=== PATIENT | female | born 1975 | race Caucasian/White ===

== ENCOUNTER 2020-09-24 18:36 | Emergency (ER) | payer BC, SELFPAY ==
--- NOTE | ~2020-09-24 | XR_ITS ---
EXAMINATION: XR chest 2V EXAM DATE: 09/24/2020 19:24 INDICATION: Cough for 5 days. History of bronchitis and asthma. TECHNIQUE: Frontal and lateral projections of the chest obtained and reviewed. Comparison is made to prior examination from 08/14/2014. FINDINGS: The lungs are clear. There are no pleural effusions. The cardiomediastinal silhouette is within normal limits. There is no pneumothorax suspected. The bones and soft tissues are unremarkab le. IMPRESSION: No acute cardiopulmonary findings. Reviewed, dictated and finalized at location A.
[2020-09-24 18:52] VITALS: BP 166/98; PULSE 98; RESP 20; TEMP 37.4; O2SAT 96
--- NOTE | 2020-09-24 19:10 | ED.URI ---
HPI - URI/Sore Throat General Chief Complaint: Upper Respiratory Infection Stated Complaint: Congestion,cough Time Seen by Provider: 09/24/20 19:10 Source: patient and RN notes reviewed Mode of arrival: ambulatory Limitations: no limitations History of Present Illness HPI Narrative: 45-year-old female presents to the [facility] with complaints of runny nose, nasal congestion, productive cough and wheezing. Has a history of asthma. Used her rescue inhaler which made her feel better approximately noon today. Patient states that the sinus symptoms started approximately 5 days ago and since has moved into her chest. Denies chest pain or abdominal pain. Denies fevers. Denies ear pain. Related Data Home Medications Medication Instructions Recorded Confirmed albuterol sulfate [ProAir HFA] 1 inh INHALATION Q4-6H 09/24/20 09/24/20 budesonide-formoterol [Symbicort] 2 puff INHALATION Q12H 09/24/20 09/24/20 dextroamphetamine-amphetamine 45 mg PO DAILY 09/24/20 09/24/20 [Adderall] escitalopram oxalate [Lexapro] 20 mg PO DAILY 09/24/20 09/24/20 Allergies Allergy/AdvReac Type Severity Reaction Status Date / Time ENVIRONMENTAL ALLERGENS AdvReac Unknown Uncoded 01/12/17 17:04 Review of Systems Review of Systems: Narrative: CONSTITUTIONAL: Denies fever. Reports intermittent chills, or sweats. EYES: Denies visual changes, redness, or discharge. ENT: Reports rhinorrhea and congestion. Denies sore throat, or otalgia. CARDIOVASCULAR: Denies chest pain, palpitations, or edema. RESPIRATORY: Reports productive cough without dyspnea. GASTROINTESTINAL: Denies abdominal pain, nausea, vomiting, or diarrhea. SKIN: Denies rash or itching. MUSCULOSKELETAL: Denies back pain, joint pain, or myalgia. NEUROLOGIC: Denies headache, numbness, or weakness. PSYCHIATRIC: Denies anxiety or depression. All other systems reviewed are negative, except as documented in HPI. [facility] Past Medical History Medical History (Updated 09/24/20 @ 19:53 by Felicia Carter) Asthma Social History Social History Gender identity (if verbalized by the patient): Female Comments At the time of my signature, I reviewed and agree with the nursing past medical, surgical, social, and family history. There is no relevant family history pertinent to the patient complaint. Exam Narrative: Exam Narrative: GENERAL: This is a well-nourished, well-developed patient, in no apparent distress. Obese HEAD: normocephalic, atraumatic. EYES: PERRL. Sclera clear/white. Vision is grossly intact. EARS: External ears normal, auditory canals clear and without drainage, TMs normal without perforation. Hearing grossly intact. NOSE: External nose normal with no obvious nasal discharge, nares without redness, no rhinorrhea. THROAT: Mucous membranes moist, posterior pharynx clear. NECK: Neck supple, non-tender without lymphadenopathy, masses or thyromegaly. CARDIOVASCULAR: Regular rate and rhythm without murmurs, gallops, or rubs. RESPIRATORY: Strong cough noted that is productive. Coarseness noted throughout. Wheeze to the right lower and right middle noted, cleared with a cough. GASTROINTESTINAL: Abdomen soft, non-tender, nondistended. NEURO: awake, alert, and oriented to person, place and time. There were no obvious focal neurologic abnormalities. EXTREMITIES: No joint tenderness, effusion, or edema noted. BACK: Nontender without deformity. Course Vital Signs Vital signs: Vital Signs Temperature 99.4 F 09/24/20 18:52 Pulse Rate 98 09/24/20 18:52 Respiratory Rate 20 09/24/20 18:52 Blood Pressure 166/98 H 09/24/20 18:52 Pulse Oximetry 96 09/24/20 18:52 Temperature 99.4 F 09/24/20 18:52 Pulse Rate 98 09/24/20 18:52 Respiratory Rate 20 09/24/20 18:52 Blood Pressure 166/98 H 09/24/20 18:52 Pulse Oximetry 96 09/24/20 18:52 Discussed with patient that her blood pressure is elevated Reviewed MDM - URI/Sore Throat MDM Narrative Medical decision ma
[2020-09-25 18:07] LABS: SARS-CoV-2 RNA PCR Negative
== END 2020-09-24 19:45 | disposition home or self-care (01) ==
PROVIDERS: Emergency Provider Nurse Practitioner; PCP Emergency Medicine
DX: J40 Bronchitis, not specified as acute or chronic (principal); J06.9 Acute upper respiratory infection, unspecified; Z20.822 Contact with and (suspected) exposure to COVID-19
CPT/HCPCS: 71046; 87426; 99213; C9803; G0463; U0003; U0005

== ENCOUNTER 2021-05-20 12:30 | Emergency (ER) | payer BC, SELFPAY ==
[2021-05-20 12:39] VITALS: BP 131/82; PULSE 92; RESP 16; TEMP 37.4; O2SAT 99
--- NOTE | 2021-05-20 14:21 | ED.URI ---
HPI - URI/Sore Throat General Chief Complaint: Upper Respiratory Infection Stated Complaint: Congestion Time Seen by Provider: 05/20/21 14:21 Source: patient, RN notes reviewed and old records reviewed Mode of arrival: ambulatory Limitations: no limitations History of Present Illness HPI Narrative: 45 YEAR OLD FEMALE WHO PRESENTS TO [facility] WITH COMPLAINTS OF HEAD CONGESTION WITH NASAL DRAINAGE SINCE THURSDAY AND SORE THROAT. PATIENT REPORTS THAT SHE HAS NOTED NO TASTE OR SMELL TODAY. PATIENT STATES NO BODY ACHES, DENIES ANY SHORTNESS OF BREATH OR ANY KNOWN FEVERS. PATIENT REPORTS THAT SHE HAS NOT HAD COVID VACCINATIONS, DOES HAVE HISTORY OF ASTHMA. SHE STATES THAT SHE HAS HAD A HARSH NON PRODUCTIVE COUGH ALSO. MD elicited complaint: cough, rhinorrhea and nasal congestion Pertinent past history: asthma Onset (ago): day(s) (3) Consistency: progressively worsening Related Data Home Medications Medication Instructions Recorded Confirmed albuterol sulfate [ProAir HFA] 1 inh INHALATION Q4-6H 09/24/20 05/20/21 budesonide-formoterol [Symbicort] 2 puff INHALATION Q12H 09/24/20 05/20/21 dextroamphetamine-amphetamine 45 mg PO DAILY 09/24/20 05/20/21 [Adderall] escitalopram oxalate [Lexapro] 20 mg PO DAILY 09/24/20 05/20/21 Allergies Allergy/AdvReac Type Severity Reaction Status Date / Time ENVIRONMENTAL ALLERGENS AdvReac Unknown Other Uncoded 05/20/21 14:23 Review of Systems Review of Systems: CONSTITUTIONAL: Denies fever, chills, or sweats. EYES: Denies visual changes, redness, or discharge. ENT: POSITIVE rhinorrhea, congestion, POSITIVE sore throat, no otalgia. CARDIOVASCULAR: Denies chest pain, palpitations, or edema. RESPIRATORY: POSITIVE cough no dyspnea. GASTROINTESTINAL: Denies abdominal pain, nausea, vomiting, or diarrhea. GENITOURINARY: Denies dysuria or hematuria. SKIN: Denies rash or itching. MUSCULOSKELETAL: Denies back pain, joint pain, or myalgia. NEUROLOGIC: Denies headache, numbness, or weakness. PSYCHIATRIC: POSITIVE HISTORY OF anxiety or depression. All systems reviewed & are unremarkable except as noted in HPI and below PMFSH Past Medical History Medical History (Updated 05/22/21 @ 10:07 by Maggie Erickson NP) Anxiety with depression Asthma Bronchitis Elevated liver enzymes Hypertension Surgical History Surgical History (Updated 05/22/21 @ 10:02 by Maggie Erickson NP) H/O tubal ligation H/O: hysterectomy History of cholecystectomy Hx of appendectomy Previous section Family History Family History (Updated 05/22/21 @ 09:50 by Maggie Erickson NP) Father Diabetes mellitus Social History Social History (Updated 05/22/21 @ 09:56 by Maggie Erickson NP) Social History: exposure to second hand tobacco Alcohol intake: never Substance use: never Living arrangements: with family Gender identity (if verbalized by the patient): Female Comments At time of signature, agree with nursing past medical, surgical, social and family history. There is no relevant family history pertinent to the presenting complaint Exam Narrative: GENERAL: ill-appearing, well-nourished,obese and in no acute distress. HEAD: Normocephalic, atraumatic. EYES: PERRLA and EOMI. ENT: Nares red and swollen with clear rhinorrhea no epistaxis. Mucous membranes moist.TM's normal with good light reflex, throat red with no lesions or exudates, tonsil enlargement, post nasal drainage present, loss of taste and smell reported. NECK: Supple.no lymphadenopathy CHEST: Clear to auscultation. No respiratory distress. harsh cough noted with no stated dyspnea, SAO2 99% on room air. HEART: Regular rate and rhythm. No murmur heard. Normal peripheral pulses. ABDOMEN: Soft, nontender, nondistended, normal active bowel sounds. EXTREMITIES: Normal range of motion. No edema. SKIN: Warm, dry, no rash. NEURO: No focal deficits. Alert and oriented x3. Course Vital Signs Vital signs: Vital Signs Temperature
== END 2021-05-20 14:55 | disposition home or self-care (01) ==
PROVIDERS: Emergency Provider Registered Nurse; PCP Emergency Medicine
DX: U07.1 COVID-19 (principal); J45.909 Unspecified asthma, uncomplicated; I10 Essential (primary) hypertension; F41.9 Anxiety disorder, unspecified; F32.A Depression, unspecified
CPT/HCPCS: 87426; 99213; C9803; G0463

== ENCOUNTER 2021-09-04 12:51 | Emergency (ER) | payer BC, SELFPAY ==
[2021-09-04 12:58] VITALS: BP 136/77; PULSE 102; RESP 18; TEMP 37.3; O2SAT 97
[2021-09-04 12:59] VITALS: BP 136/77; PULSE 102; RESP 18; TEMP 37.3; O2SAT 97
--- NOTE | 2021-09-04 13:02 | ED.URI ---
HPI - URI/Sore Throat General Chief Complaint: Upper Respiratory Infection Stated Complaint: congestion Time Seen by Provider: 09/04/21 13:03 Source: patient Mode of arrival: ambulatory Limitations: no limitations History of Present Illness HPI Narrative: Verito Adams is a 46 yo female with PMH of HTN, seasonal allergies, depression, [facility] complaints of a sore throat cough and nasal congestion she is concerned that her days congestion may turn into bronchitis which she has had in the past. She states her throat is been really sore the last 2 days she will be tested for both strep and Covid since the patient is not vaccinated Related Data Home Medications Medication Instructions Recorded Confirmed budesonide-formoterol [Symbicort] 2 puff INHALATION Q12H 09/24/20 09/04/21 dextroamphetamine-amphetamine 45 mg PO DAILY 09/24/20 09/04/21 [Adderall] escitalopram oxalate [Lexapro] 20 mg PO DAILY 09/24/20 09/04/21 Allergies Allergy/AdvReac Type Severity Reaction Status Date / Time ENVIRONMENTAL ALLERGENS AdvReac Unknown Other Uncoded 09/04/21 12:58 Review of Systems Review of Systems: CONSTITUTIONAL: Denies fever, chills, sweats. EYES: Denies visual changes, redness, discharge. ENT: Denies rhinorrhea, has congestion, has sore throat, otalgia. CARDIOVASCULAR: Denies chest pain, palpitations, edema. RESPIRATORY: Denies dyspnea, wheezing, has cough GASTROINTESTINAL: Denies abdominal pain, nausea, vomiting, diarrhea. GENITOURINARY: Denies dysuria, hematuria, abnormal discharge SKIN: Denies rash or itching. NEUROLOGIC: Denies numbness, or focal weakness. PSYCHIATRIC: Denies anxiety or depression. [facility] Past Medical History Medical History Anxiety with depression Asthma Bronchitis Elevated liver enzymes Hypertension Surgical History Surgical History H/O tubal ligation H/O: hysterectomy History of cholecystectomy Hx of appendectomy Previous section Family History Family History Father Diabetes mellitus Social History Social History Social History: exposure to second hand tobacco Alcohol intake: never Substance use: never Gender identity (if verbalized by the patient): Female Comments At time of signature, I agree with nursing past medical, surgical, social and family history. There is no relevant family history pertinent to the presenting complaint. Exam Narrative: GENERAL: This is a well-nourished, well-developed patient, in mild distress. HEAD: normocephalic, atraumatic. EYES: Sclera clear/white. Vision is grossly intact. EARS: External ears normal, auditory canals clear and without drainage, TMs normal without perforation. Hearing grossly intact. NOSE: External nose normal without nasal discharge, nares with redness, has rhinorrhea. THROAT: Mucous membranes moist, posterior pharynx erythema with no exudate NECK: Neck supple, CARDIOVASCULAR: Tachycardic rate and rhythm without murmurs, gallops, or rubs. RESPIRATORY: Clear to auscultation. Breath sounds equal bilaterally. No wheezes, rales, or rhonchi. GASTROINTESTINAL: Abdomen soft, SKIN: warm, intact with no suspicious lesions or rash, good texture and turgor. NEURO: awake, alert, and oriented to person, place and time. There were no obvious focal neurologic abnormalities. Steady gait EXTREMITIES: Normal range of motion. BACK: Nontender without deformity Course Course Emergency Course: Patient comes with sore throat and congestion x2 days; patient is on vaccinated Rapid Covid test done is negative Strep test is negative Started on Zithromax and Flonase, Zyrtec-continue other medication Level of Care: Express Care Visit Vital Signs Vital signs: Vital Signs Temperature 99.1 F 09/04/
== END 2021-09-04 13:40 | disposition home or self-care (01) ==
PROVIDERS: Emergency Provider Nurse Practitioner; PCP Emergency Medicine
DX: J06.9 Acute upper respiratory infection, unspecified (principal); Z20.822 Contact with and (suspected) exposure to COVID-19; J45.909 Unspecified asthma, uncomplicated; I10 Essential (primary) hypertension; F32.A Depression, unspecified; F41.9 Anxiety disorder, unspecified
CPT/HCPCS: 87081; 87426; 87880; 99213; C9803; G0463

== ENCOUNTER 2021-10-05 14:58 | Emergency (ER) | payer BC, SELFPAY ==
[2021-10-05 15:06] VITALS: BP 146/70; PULSE 94; RESP 18; TEMP 36.7; O2SAT 98
--- NOTE | 2021-10-05 15:12 | ED.URI ---
HPI - URI/Sore Throat General Chief Complaint: Upper Respiratory Infection Stated Complaint: [place],Congestion Time Seen by Provider: 10/05/21 15:12 Source: patient, family, RN notes reviewed and old records reviewed Mode of arrival: ambulatory Limitations: no limitations History of Present Illness HPI Narrative: 46-year-old female presents to the [facility] with complaints of cough and congestion for the last 11 days. Has been taking her Zyrtec and Flonase with no relief. Reports a nonproductive cough. Denies fevers, chest pain, abdominal pain. No nausea vomiting or diarrhea. Y Related Data Home Medications Medication Instructions Recorded Confirmed budesonide-formoterol [Symbicort] 2 puff INHALATION Q12H 09/24/20 10/05/21 dextroamphetamine-amphetamine 45 mg PO DAILY 09/24/20 10/05/21 [Adderall] escitalopram oxalate [Lexapro] 20 mg PO DAILY 09/24/20 10/05/21 Allergies Allergy/AdvReac Type Severity Reaction Status Date / Time ENVIRONMENTAL ALLERGENS AdvReac Unknown Other Uncoded 10/05/21 15:14 Review of Systems Review of Systems: All systems reviewed & are unremarkable except as noted in HPI and below Constitutional: Constitutional: Reports no additional constitutional complaints, Denies chills, Denies fever(s) and Denies headache(s) Eyes: Eyes: Reports no additional eye complaints ENT: Reports as per HPI, Denies vertigo, Denies dizziness, Denies headache(s), Reports nasal congestion and Denies sore throat Cardiovascular: Cardiovascular: Reports no additional cardiovascular complaints, Denies chest pain, Denies syncope, Denies rapid heart rate and Denies dyspnea Respiratory: Respiratory: Reports as per HPI, Reports chest congestion, Reports cough, Denies dyspnea and Denies wheezing Gastrointestinal: Gastrointestinal: Reports no additional gastrointestinal complaints, Denies abdominal pain, Denies diarrhea, Denies nausea and Denies vomiting Musculoskeletal: Musculoskeletal: Reports no additional musculoskeletal complaints and Denies numbness Integumentary/Breasts: Skin/Breast: Reports system reviewed and no additional complaints, except as docu Neurologic: Reports system reviewed and no additional complaints, except as documented, Denies vertigo, Denies dizziness, Denies syncope, Denies headache(s), Denies focal weakness and Denies numbness Psychiatric: Psychiatric: Reports no additional psychiatric complaints Allergic/Immunologic: Allergic/Immunologic: Reports no additional allergic/immunologic complaints and Denies wheezing PMFSH Past Medical History Medical History Anxiety with depression Asthma Bronchitis Elevated liver enzymes Hypertension Surgical History Surgical History H/O tubal ligation H/O: hysterectomy History of cholecystectomy Hx of appendectomy Previous section Family History Family History Father Diabetes mellitus Social History Social History Social History: exposure to second hand tobacco Alcohol intake: never Substance use: never Gender identity (if verbalized by the patient): Female Comments At the time of my signature, I reviewed and agree with the nursing past medical, surgical, social, and family history. There is no relevant family history pertinent to the patient complaint. Exam Const: General: cooperative, healthy appearing, no acute distress, well developed and alert Nutritional Appearance: well nourished and obese Orientation/consciousness: patient oriented x3 Limitations: no limitations HENMT: Head: normal to inspection Ears: external ears normal, TM's normal bilaterally and EAC's normal General nose exam: Abnormal mucous membranes and turbinates present boggy bilateral and Nasal discharge present mucoid Face and sinus: normal
== END 2021-10-05 15:30 | disposition home or self-care (01) ==
PROVIDERS: Emergency Provider Nurse Practitioner; PCP Emergency Medicine
DX: J32.9 Chronic sinusitis, unspecified (principal); J45.909 Unspecified asthma, uncomplicated; I10 Essential (primary) hypertension; F41.9 Anxiety disorder, unspecified; F32.A Depression, unspecified
CPT/HCPCS: 99213; G0463

== ENCOUNTER 2022-09-21 14:31 | Emergency (ER) | payer OTHER, BC, SELFPAY ==
[2022-09-21 14:43] VITALS: BP 145/90; PULSE 91; RESP 20; TEMP 36.6; O2SAT 97
--- NOTE | 2022-09-21 15:20 | ED.GENADULT ---
HPI - General Adult General Chief complaint: Ear Stated complaint: Right Ear Irritation Time Seen by Provider: 09/21/22 15:20 Source: patient, RN notes reviewed and old records reviewed Mode of arrival: ambulatory Limitations: no limitations History of Present Illness HPI narrative: 47-year-old female presents to the [facility] with right ear pain for 2 days. States she has also had sinus congestion but after taking Sudafed that has cleared up but the ear pain has increased Related Data Home Medications Medication Instructions Recorded Confirmed budesonide-formoterol HFA 160 2 puff inhalation Q12H 09/24/20 09/21/22 mcg-4.5 mcg/actuation aerosol inhaler (Symbicort) dextroamphetamine-amphetamine 30 45 mg PO DAILY 09/24/20 09/21/22 mg tablet (Adderall) escitalopram oxalate 20 mg tablet 20 mg PO DAILY 09/24/20 09/21/22 (Lexapro) Allergies Allergy/AdvReac Type Severity Reaction Status Date / Time ENVIRONMENTAL ALLERGENS AdvReac Unknown Other Uncoded 09/21/22 14:45 Review of Systems Review of Systems: All systems reviewed & are unremarkable except as noted in HPI and below Constitutional: Constitutional: Reports no additional constitutional complaints Eyes: Eyes: Reports no additional eye complaints ENT: Reports as per HPI and Reports otalgia Cardiovascular: Cardiovascular: Reports no additional cardiovascular complaints, Denies chest pain and Denies dyspnea Respiratory: Respiratory: Reports no additional respiratory complaints, Denies chest congestion, Denies cough and Denies dyspnea Gastrointestinal: Gastrointestinal: Reports no additional gastrointestinal complaints, Denies abdominal pain, Denies nausea and Denies vomiting Musculoskeletal: Musculoskeletal: Reports no additional musculoskeletal complaints Integumentary/Breasts: Skin/Breast: Reports system reviewed and no additional complaints, except as docu Neurologic: Reports system reviewed and no additional complaints, except as documented Psychiatric: Psychiatric: Reports no additional psychiatric complaints Allergic/Immunologic: Allergic/Immunologic: Reports no additional allergic/immunologic complaints PMFSH Past Medical History Medical History Anxiety with depression Asthma Bronchitis Elevated liver enzymes Hypertension Surgical History Surgical History H/O tubal ligation H/O: hysterectomy History of cholecystectomy Hx of appendectomy Previous section Family History Family History Father Diabetes mellitus Social History Social History Social History: exposure to second hand tobacco Alcohol intake: never Substance use: never Living arrangements: with family Gender identity (if verbalized by the patient): Female Comments At the time of my signature, I reviewed and agree with the nursing past medical, surgical, social, and family history. There is no relevant family history pertinent to the patient complaint. Exam Const: General: cooperative, healthy appearing, comfortable, no acute distress, well developed, alert and well nourished Nutritional Appearance: well nourished and obese Orientation/consciousness: patient oriented x3 Limitations: no limitations HENMT: Head: normal to inspection Ears: hearing grossly normal bilaterally, external ears normal, TM normal on the left, EAC's normal and TM abnormal bulging on the right, wth effusion purulent on the right and erythematous on the right Face/Nose/Sinus: Normal external nose present, Normal nares present, Normal nasal mucous membranes and turbinates present and normal facial exam Face and sinus: normal facial exam Mouth: Yes Normal oral and palatal mucosa present, Yes lip normal and Yes moist mucous membranes Throat: posterior oropharynx no
== END 2022-09-21 15:32 | disposition home or self-care (01) ==
PROVIDERS: Emergency Provider Nurse Practitioner; PCP Emergency Medicine
DX: H66.91 Otitis media, unspecified, right ear (principal); I10 Essential (primary) hypertension
CPT/HCPCS: 99213; G0463

== ENCOUNTER 2022-11-14 12:17 | Outpatient (CLI) | payer OTHER, SELFPAY ==
--- NOTE | ~2022-11-14 | XR_ITS ---
XR lumbar spine 2-3V 11/14/2022 12:39 Indication: Lumbago. Back pain. Procedure: 3 views lumbar spine Comparison: No prior studies for comparison. Findings: There is grade 2 spondylolisthesis at L4-5. There is disc narrowing at all lumbar levels. V ertebral body heights are maintained. There is lower lumbar facet hypertrophy. No acute fracture or t raumatic malalignment. There is mild dextrocurvature.There is a radiodensity lateral to the L2 verteb ra on the left, most likely bowel content. There are cholecystectomy clips. Bowel pattern is nonobstr uctive. There are pelvic phleboliths. Impression: 1: Moderate lumbar spondylosis. Reviewed, dictated and finalized at location B. Impression: 1: Moderate lumbar spondylosis.
== END 2022-11-14 12:18 | disposition home or self-care (01) ==
LOC: ANHIMG 12:21
PROVIDERS: PCP Physician Assistant; Visit Provider Physician Assistant
DX: M47.896 Other spondylosis, lumbar region (principal)
CPT/HCPCS: 72100

== ENCOUNTER 2022-11-27 10:05 | Outpatient (CLI) | payer OTHER, SELFPAY ==
--- NOTE | 2022-11-27 10:28 | ECG_ITS ---
Measurements Intervals [place] Rate: 73 P: 26 DE: 166 QRS: -29 QRSD: 89 T: 20 QT: 390 QTc: 431 Interpretive Statements SINUS RHYTHM DELAYED PRECORDIAL R/S TRANSITION LOW QRS VOLTAGE IN PRECORDIAL LEADS BORDERLINE ECG NO PREVIOUS ECG AVAILABLE FOR COMPARISON Electronically Signed On 11-27-2022 11:11:32 CDT by Sarwat Meadows D.O.
== END 2022-11-27 10:06 | disposition home or self-care (01) ==
PROVIDERS: PCP Physician Assistant; Visit Provider Physician Assistant
DX: Z51.81 Encounter for therapeutic drug level monitoring (principal)
CPT/HCPCS: 93005

== ENCOUNTER 2023-02-28 09:56 | Emergency (ER) | payer OTHER, SELFPAY ==
[2023-02-28 10:06] VITALS: BP 143/71; PULSE 100; RESP 16; TEMP 37.2; O2SAT 99
--- NOTE | 2023-02-28 10:38 | ED.URI ---
HPI - URI/Sore Throat General Chief Complaint: Upper Respiratory Infection Stated Complaint: congestion, cough,sweating Time Seen by Provider: 02/28/23 10:38 Source: patient and RN notes reviewed Mode of arrival: ambulatory Limitations: no limitations History of Present Illness HPI Narrative: 47-year-old female presented for complaint of fatigue, headache, sinus pressure/congestion, cough, fever/chills. onset 2 days. States she feels the congestion is settling in her chest. Endorses has been with similar symptoms. Taking [id number] medication without significant relief. Patient quit smoking about 1 week ago.Denies sob, wheezing, n/v/d. MD elicited complaint: cough Related Data Home Medications Medication Instructions Recorded Confirmed budesonide-formoterol HFA 160 2 puff inhalation Q12H 09/24/20 09/21/22 mcg-4.5 mcg/actuation aerosol inhaler (Symbicort) escitalopram oxalate 20 mg tablet 20 mg PO DAILY 09/24/20 09/21/22 (Lexapro) diclofenac sodium 75 mg mg PO 02/28/23 tablet,delayed release Allergies Allergy/AdvReac Type Severity Reaction Status Date / Time ENVIRONMENTAL ALLERGENS AdvReac Unknown Other Uncoded 02/28/23 09:57 Review of Systems Review of Systems: CONSTITUTIONAL: Endorses malaise, chills, sweats, fever EYES: Denies visual changes, redness, or discharge ENT: Reports rhinorrhea, congestion, Denies sinus pain, otalgia, sore throat CARDIOVASCULAR: Denies chest pain, palpitations, edema RESPIRATORY: Reports cough, post nasal drainage. Denies dyspnea GASTROINTESTINAL: Denies abdominal pain, nausea, vomiting, diarrhea SKIN: Denies rash or itching MUSCULOSKELETAL: deniesmyalgia NEUROLOGIC: Reports headache PMFSH Past Medical History Medical History Anxiety with depression Asthma Bronchitis Elevated liver enzymes Hypertension Surgical History Surgical History H/O tubal ligation H/O: hysterectomy History of cholecystectomy Hx of appendectomy Previous section Family History Family History Father Diabetes mellitus Social History Social History Social History: exposure to second hand tobacco Alcohol intake: never Substance use: never Living arrangements: with family Gender identity (if verbalized by the patient): Female Exam Narrative: GENERAL: mildly Ill-appearing, nontoxic no acute distress. HEAD: Normocephalic EYES: PERRLA, conjunctivae clear ENT: Mucous membranes moist. TM pearly rosales with dull light reflex bilaterally; no tragal tenderness. Oropharynx erythematous without lesions or exudate NECK: Supple. No lymphadenopathy CHEST: Clear to auscultation, breath sounds equal. expiratory wheezing to bases. No respiratory distress, speaks in full sentences. HEART: Regular rate and rhythm. No murmur heard. SKIN: Warm, dry, no rash. NEURO: Alert and oriented x3. PSYCH: Normal mood and affect Course Course Emergency Course: Patient is aware of diagnosis, understands and agrees to treatment plan. Anticipatory guidance given. Patient agrees to follow-up as directed and is aware of reasons to seek care at the emergency department. Portions of this record may have been created with voice recognition software Level of Care: Express Care Visit Vital Signs Vital signs: Vital Signs Temperature 99.0 F 02/28/23 10:06 Pulse Rate 100 02/28/23 10:06 Respiratory Rate 16 02/28/23 10:06 Blood Pressure 143/71 H 02/28/23 10:06 Pulse Oximetry 99 02/28/23 10:06 Oxygen Delivery Room Air 02/28/23 10:06 Temperature 99.0 F 02/28/23 10:06 Pulse Rate 100 02/28/23 10:06 Respiratory Rate 16 02/28/23 10:06 Blood Pressure 143/71 H 02/28/23 10:06 Pulse Oximetry 99 02/28/23 10:06 Oxygen
== END 2023-02-28 11:08 | disposition home or self-care (01) ==
PROVIDERS: Emergency Provider Nurse Practitioner Family; PCP Physician Assistant
DX: B34.9 Viral infection, unspecified (principal); J45.909 Unspecified asthma, uncomplicated; I10 Essential (primary) hypertension; F98.8 Other specified behavioral and emotional disorders with onset usually occurring in childhood and adolescence; Z87.891 Personal history of nicotine dependence
CPT/HCPCS: 87426; 99213; C9803; G0463

== ENCOUNTER 2023-12-15 18:44 | Emergency (ER) | payer SELFPAY ==
--- NOTE | 2023-12-15 18:47 | ED.URI ---
HPI - URI/Sore Throat General Stated Complaint: sore throat,ear pressure Time Seen by Provider: 12/15/23 18:47 Source: patient Mode of arrival: ambulatory Limitations: no limitations History of Present Illness HPI Narrative: Shu is a 48-year-old female patient presenting to the clinic today with complaints of right ear pain and right-sided sore throat. She reports the symptoms started yesterday. Reports she felt feverish and having chills and sweats yesterday and today. MD elicited complaint: sore throat and nasal congestion Related Data Home Medications Medication Instructions Recorded Confirmed budesonide-formoterol HFA 160 2 puff inhalation Q12H 09/24/20 12/15/23 mcg-4.5 mcg/actuation aerosol inhaler (Symbicort) escitalopram oxalate 20 mg tablet 20 mg PO DAILY 09/24/20 12/15/23 (Lexapro) Allergies Allergy/AdvReac Type Severity Reaction Status Date / Time ENVIRONMENTAL ALLERGENS AdvReac Unknown Other Uncoded 12/15/23 18:56 Review of Systems Review of Systems: Pertinent positives per HPI. Patient denies any rash, headache, visual changes, dizziness, cough, shortness of breath, chest pain, palpitations, nausea, vomiting, diarrhea, constipation, abdominal pain, or any urinary issues. [facility] Past Medical History Medical History Anxiety with depression Asthma Bronchitis Elevated liver enzymes Hypertension Surgical History Surgical History H/O tubal ligation H/O: hysterectomy History of cholecystectomy Hx of appendectomy Previous section Family History Family History Father Diabetes mellitus Social History Social History Social History: exposure to second hand tobacco Alcohol intake: never Substance use: never Living arrangements: with family Gender identity (if verbalized by the patient): Female Comments At the time of my signature, I reviewed and agree with the nursing past medical, surgical, social, and family history. There is no relevant family history pertinent to the patient complaint. Exam Narrative: General: Well-developed, well nourished, in no apparent distress Head: Normocephalic, atraumatic Eyes: Pupils equally round and reactive to light bilaterally, EOM intact, sclera and conjunctive clear, no discharge, lids normal Ears: Left TMs intact and clear, right TM intact, bulging, red, ear canals clear, no drainage, grossly hearing normal. Nose: Nares patent, no discharge, no inflammation, no sinus tenderness. Mouth: Oral pharynx red with bilateral tonsillar enlargement with exudate to the right tonsil, without lesions or masses, good dentition, MMM. Neck: Supple, trachea midline, enlargement of anterior cervical nodes, no thyroid masses or goiter palpable. Cardio: Regular rate and rhythm, s1 and s2 normal, no murmur appreciated. Resp: Clear to auscultation bilaterally, no rhonchi, rales, wheezing or rubs Course Course Emergency Course: Portions of this record may have been created with voice recognition software. Level of Care: Express Care Visit Vital Signs Vital signs: Vital Signs Temperature 36.2 C L 12/15/23 18:53 Pulse Rate 91 12/15/23 18:53 Respiratory Rate 20 12/15/23 18:53 Blood Pressure 144/89 H 12/15/23 18:53 Pulse Oximetry 96 12/15/23 18:53 Oxygen Delivery Room Air 12/15/23 18:53 Temperature 36.2 C L 12/15/23 18:53 Pulse Rate 91 12/15/23 18:53 Respiratory Rate 20 12/15/23 18:53 Blood Pressure 144/89 H 12/15/23 18:53 Pulse Oximetry 96 12/15/23 18:53 Oxygen Delivery Room Air 12/15/23 18:53 Vital signs reviewed MDM - URI/Sore Throat MDM Narrative Medical decision making narrative: At the time of visit patient is resting comfortably on the exam table
[2023-12-15 18:53] VITALS: BP 144/89; PULSE 91; RESP 20; TEMP 36.2; O2SAT 96
== END 2023-12-15 19:15 | disposition home or self-care (01) ==
PROVIDERS: Emergency Provider Nurse Practitioner Family; PCP Physician Assistant
DX: H66.91 Otitis media, unspecified, right ear (principal); J02.9 Acute pharyngitis, unspecified; J45.909 Unspecified asthma, uncomplicated; I10 Essential (primary) hypertension; F41.9 Anxiety disorder, unspecified; F32.A Depression, unspecified
CPT/HCPCS: 87880; 99213; G0463

== ENCOUNTER 2025-03-01 12:50 | Outpatient (CLI) | payer OTHER, SELFPAY ==
--- OUTSIDE RECORDS SUMMARY | 2022-07-29 09:58 | XMS_ITS | Continuity of Care Document ---
Author Organization [facility] Address [address] [facility] [place] [address] [place] [address] Phone Care Team Providers Care Balance Wheel Facer Name Role Phone Marcello Leahy MD Unavailable [...] Diagnoses Date Provider Providers Copied on Encounter [facility], [address] [place], [place], [address], tel:[phone] [facility] No Information J Luis Armond Armendariz. [address] [place], [place], [address] , . tel:[phone] [facility], [address] [place], [place], [address], [place] tel:[phone] [facility] No Information 2 Armond Claudio [address], [place], [place], [address] , [place]. tel:[phone] PREV VISIT, EST, AGE 40-64 [facility], [address], [address], [place] tel:[phone] [facility] physical (chief complaint) Encounter for general adult medical exam w abnormal findingsLiver diseaseOther thrombocytosisOther specified abnormal findings of blood chemistryGeneralize d anxiety disorderAttention and concentration deficitMild intermittent asthma, uncomplicatedMixed hyperlipidemiaAbnor mal weight loss 2 Armond Claudio [address], [place], [place], [address] , [place]. tel:[phone] OFFICE/OUTPA TIENT VISIT, EST [facility], [address] [place], [address], [place] tel:[phone] [facility] LFT (chief complaint) HLP (chief complaint) platelet (chief complaint) b12 (chief complaint) FatigueOther thrombocytosisMixed hyperlipidemiaHyper glycemiaLiver diseaseOther specified abnormal findings of blood chemistry 2 Armond Claudio [address], [place], [place], [address] , [place]. tel:[phone] OFFICE/OUTPA TIENT VISIT, EST [facility], [address] [place], [address], [place] tel:[phone] [facility] ADD (chief complaint) asthma1 (chief complaint) anxiety1 (chief complaint) Attention and concentration deficitGeneralized anxiety disorderMild intermittent asthma, uncomplicated 2 Armond Claudio [address], [place], [place], [address] , [place]. tel:[phone] PREV VISIT, EST, AGE 40-64 [facility], [address] [place], [address], [place] tel:[phone] [facility] physical (chief complaint) Encounter for general adult medical exam w abnormal findingsAsthmaGener alized anxiety disorderAttention and concentration deficit 0- 1 Armond Armendariz. [address], [place], [place], [address] , [place]. tel:[phone] OFFICE/OUTPA TIENT VISIT, [facility], [address], [place], [place], [address], [place] tel:[phone] [facility] ADD (chief complaint) anxiety1 (chief complaint) Attention and concentration deficitGeneralized anxiety disorder 1 Armond Armendariz. [address], [place], [place], [address] , [place]. tel: [phone] PREV VISIT, [facility], AGE 40-64 [facility], [address], [place], [place], [address], [place] tel:[phone] [facility] physical (chief complaint) Encounter for general adult medical examination without abnormal findings 0 Armond Armendariz. [address], [place], [place], [address] , [place]. tel: [phone] OFFICE/OUTPA TIENT VISIT, [facility], [address], [place], [place], [address], [place] tel:[phone] [facility] ADD (chief complaint) back pain1 (chief complaint) anxiety1 (chief complaint) asthma1 (chief complaint) Attention and concentration deficitLumbago with sciatica, right sideGeneralized anxiety disorderAsthma Jan- 0 Armond Armendariz. [address], [place], [place], [address] , [place]. tel: [phone] OFFICE/OUTPA TIENT VISIT, [facility], [address], [place], [place], [address], [place] tel:[phone] [facility] ADD (chief complaint) back pain1 (chief complaint) Attention and concentration deficitLumbago with sciatica, right side 0 Armond Armendariz. [address], [place], [place], [address] , [place]. tel:[phone] OFFICE/OUTPA TIENT VISIT, EST [facility], [address], [place], [place], [address], [place] tel:[phone] [facility] sciatica1 (chief complaint) ADD (chief complaint) HTN (chief complaint) Essential (primary) hypertensionAttenti on and concentration deficitLumbago with sciatica, right sideParesthesia of skin Feb-2 0-202 0 Armond Armendariz. [address], [place], [place], [address] , [place]. tel:[phone] OFFICE/OUTPA TIENT VISIT, EST [facility], [address], [place], [place], [address], [place] tel:[phone] [facility] sciatica1 (chief complaint) HTN (chief complaint) Essential (primary) hypertensionParesth esia of skin Feb-0 7-202 0 Armond Armendariz. [address], [place], [place], [address] , [place]. tel:[phone] OFFICE/OUTPA TIENT VISIT, EST [facility], [address], [place], [place], [address], [place] tel:[phone] [facility] anxiety1 (chief complaint) asthma1 (chief complaint) ADD (chief complaint) Body mass index (BMI) 50-59.9 , adultAsthmaAcute bronchitisGeneraliz ed Anxiety DisorderAttention and concentration deficit Nov-2 2-201 9 Armond Armendariz. [address], [place], [place], [address] , [place]. tel:[phone] Referring Provider: Marcello Leahy, [address] [facility] [address], [place], [place], [address]. tel:[phone] PREV VISIT, EST, AGE 40-64 [facility], [address], [place], [place], [address], [place] tel:[phone] [facility] anxiety1 (chief complaint) Encounter for general adult medical exam w abnormal findingsAsthmaAtten tion and concentration deficitEssential (primary) hypertensionGeneral ized anxiety disorder November-2 0-201 9 Armond Armendariz. [address], [place], [place], [address] , [place]. tel:[phone] Referring Provider: Jimbo [address], [place], [place], [address]. tel:[phone] PREV VISIT, EST, AGE 40-64 [facility], [address], [place], [place], [address], [place] tel:[phone] [facility] PHysical (chief complaint) Encounter for general adult medical exam w abnormal findingsAsthmaAtten tion deficitBody mass index (BMI) 45.0-49.9, adultGeneralized anxiety disorder Nov-1 6-201 8 Armond Claudio [address], [place], [place], [address] , [place]. tel:[phone] OFFICE/OUTPA TIENT VISIT, EST [facility], [address], [place], [place], [address], [place] [phone] [facility] asthma1 (chief complaint) anxiety1 (chief complaint) ADD (chief complaint) Body mass index (BMI) 50-59.9 , adultAsthmaAttentio n and concentration deficitGeneralized anxiety disorder November-0 8-201 8 Armond Claudio [address], [place], [place], [address] , [place]. tel: [phone] Referring Provider: Jimbo [address], [place], [place], [address]. tel:[phone] PREV VISIT, EST, AGE 40-64 [facility], [address], [place], [place], [address], [place] [phone] [facility] Medicine PHysical (chief complaint) Encounter for general adult medical exam w abnormal findingsAttention deficitAsthmaGenera lized anxiety disorder Nov-0 2-201 7 Armond Claudio [address], [place], [place], [address] , [place]. tel:[phone] Referring Provider: Jimbo [address], [place], [place], [address]. tel:[phone] OFFICE/OUTPA TIENT VISIT, EST [facility], [address], [place], [place], [address], [place] tel:[phone] [facility] Medicine pelvic pain1 (chief complaint) anxiety1 (chief complaint) asthma1 (chief complaint) ADD (chief complaint) Pelvic painAttention deficitAsthmaGenera lized anxiety disorder 7 Armond Armendariz. [address], [place], [place], [address] , [place]. tel:[phone] Referring Provider: [address], [place], [place], [address]. tel:[phone] OFFICE/OUTPA TIENT VISIT, EST [facility], [address], [place], [place], [address], [place] tel:[phone] [facility] Medicine cough1 (chief complaint) ADD (chief complaint) BMI (chief complaint) Acute bronchitis, unspecifiedAttentio n deficitBody mass index (BMI) 50-59.9 , adult Jul- 7 Armond Armendariz. [address], [place], [place], [address] , [place]. tel:[phone] PREV VISIT, EST, AGE 40-64 [facility], [address], [place], [place], [address], [place] tel:[phone] [facility] Physical (chief complaint) Encounter for general adult medical exam w abnormal findingsAttention deficitGeneralized anxiety disorderAsthma 6 Armond Armendariz. [address], [place], [place], [address] , [place]. tel:[phone] Referring Provider: [address], [place], [place], [address]. tel:[phone] OFFICE/OUTPA TIENT VISIT, EST [facility], [address], [place], [place], [address], [place] tel:[phone] [facility] ADD (chief complaint) anxiety1 (chief complaint) asthma1 (chief complaint) hemautira (chief complaint) Attention deficitGeneralized anxiety disorderOther asthmaHematuria 6 Armond Armendariz. [address], [place], [place], [address] , [place]. tel:[phone] Referring Provider: Jimbo [address], [place], [place], [address]. tel:[phone] OFFICE/OUTPA TIENT VISIT, [facility], [address], [place], [place], [address], [place] tel:[phone] [facility] ADD1 (chief complaint) sore throat1 (chief complaint) asthma (chief complaint) obesity1 (chief complaint) Acute upper respiratory infection, unspecifiedBody mass index (BMI) 50-59.9 , adultOther asthmaAttention deficit 6 Armond Armendariz. [address], [place], [place], [address] , [place]. tel:[phone] Referring Provider: Jimbo [address], [place], [place], [address]. tel:[phone] OFFICE/OUTPA TIENT VISIT, [facility], [address], [place], [place], [address], [place] tel:[phone] [facility] ADD1 (chief complaint) hematuria1 (chief complaint) depression 1 (chief complaint) asthma1 (chief complaint) obeisty1 (chief complaint) HematuriaBody mass index (BMI) 50-59.9 , adultGeneralized anxiety disorderAttention and concentration deficit 5 Armond Armendariz. [address], [place], [place], [address] , [place]. tel:[phone] Referring Provider: Jimbo [address], [place], [place], [address]. tel:[phone] OFFICE/OUTPA TIENT VISIT, [facility], [address], [place], [place], [address], [place] tel:[phone] [facility] ADD (chief complaint) obeisty (chief complaint) hematuria (chief complaint) Dietary surveillance and counselingAttention deficit disorder of childhood without mention of hyperactivityBMI 50.0 to 59.9Hematuria 5 Armond Armendariz. [address], [place], [place], [address] , [place]. tel:[phone] Referring Provider: Jimbo [address], [place], [place], [address]. tel:[phone] PREV VISIT, EST, AGE 40-64 [facility], [address], [place], [place], [address], [place] tel:[phone] [facility] Physical (chief complaint) Dietary surveillance and counselingRoutine medical examAsthma, unspecifiedHematuri aInsulin resistance 5 Armond Armendariz. [address], [place], [place], [address] , [place]. tel:[phone] Referring Provider: Jimbo [address], [place], [place], [address]. tel:[phone] OFFICE/OUTPA TIENT VISIT, EST [facility], [address], [place], [place], [address], [place] tel:[phone] [facility] SOB (chief complaint) Asthma (chief complaint) Dietary surveillance and counselingAsthmaBro nchitis, AcuteAttention deficit disorder of childhood without mention of hyperactivity 5 Armond Armendariz. [address], [place], [place], [address] , [place]. tel:[phone] Referring Provider: Jimbo [address], [place], [place], [address]. tel:[phone] PREV VISIT, EST, AGE 40-64 [facility], [address], [place], [place], [address], [place] tel:[phone] [facility] Physical (chief complaint) Routine Medical ExamDietary surveillance and counselingAsthmaBro nchitis, AcuteAttention deficit disorder of childhood without mention of hyperactivityRoutin e Medical Exam 5 Armond Armendariz. [address], [place], [place], [address] , [place]. tel:[phone] Referring Provider: Jimbo [address], [place], [place], [address]. tel:[phone] OFFICE/OUTPA TIENT VISIT, [facility], [address], [place], [place], [address], [place] tel:[phone] [facility] cough (chief complaint) ADD (chief complaint) asthma (chief complaint) Dietary surveillance and counselingBronchiti s, AcuteAsthmaAllergic rhinitis, cause unspecifiedAttentio n deficit disorder of childhood without mention of hyperactivity 4 Armond Armendariz. [address], [place], [place], [address] , [place]. tel:[phone] Referring Provider: Jimbo [address], [place], [place], [address]. tel:[phone] OFFICE/OUTPA TIENT VISIT, [facility], [address], [place], [place], [address], [place] tel:[phone] [facility] cough (chief complaint) Anxiety (chief complaint) ADD (chief complaint) Dietary surveillance and counselingBronchiti s, AcuteAsthmaAttentio n deficit disorder of childhood without mention of hyperactivityDepres dhruv 4 Armond Armendariz. [address], [place], [place], [address] , [place]. tel:[phone] Referring Provider: Jimbo [address], [place], [place], [address]. tel:[phone] OFFICE/OUTPA TIENT VISIT, [facility], [address], [place], [place], [address], [place] tel:[phone] [facility] ADD (chief complaint) anxiety (chief complaint) Dietary surveillance and counselingAttention deficit disorder of childhood without mention of hyperactivityDepres dhruv 4 Armond Armendariz. [address], [place], [place], [address] , [place]. tel:[phone] Referring Provider: Jimbo [address], [place], [place], [address]. tel:[phone] PREV VISIT, EST, AGE 18-39 [facility], [address], [place], [place], [address], [place] tel:[phone] [facility] Physical (chief complaint) Dietary surveillance and counselingRoutine Medical ExamBronchitis, AcuteRoutine Medical Exam Dec-0 3 Armond Armendariz. [address], [place], [place], [address] , [place]. tel:[phone] PREV VISIT, EST, AGE 18-39 [facility], [address], [place], [place], [address], [place] tel:[phone] [facility] Physical (chief complaint) Dietary surveillance and counselingRoutine Medical ExamRoutine Medical Exam Salo-0 3 Armond Armendariz. [address], [place], [place], [address] , [place]. tel:[phone] Referring Provider: Jimbo [address], [place], [place], [address]. tel:[phone] OFFICE/OUTPA TIENT VISIT, EST [facility], [address], [place], [place], [address], [place] tel:[phone] [facility] ADD (chief complaint) Asthma (chief complaint) depression (chief complaint) Dietary surveillance and counselingAsthmaAtt ention deficit disorder of childhood without mention of hyperactivityMajor depressive affective disorder, single episode, mild degreeInfluenza Vaccine Jun-0 2 Armond Armendariz. [address], [place], [place], [address] , [place]. tel:[phone] Referring Provider: Jimbo [address], [place], [place], [address]. tel:[phone] Family History Family Member Type Diagnosis Age At Onset Father Problem (finding) Diabetes mellitus Sister Problem (finding) Alive and well Mother Problem (finding) CHF Immunizations Vaccine Date Status Comments Flu (split) (3 yrs or older) administered Source: New Immunization Record Payers Payer name Insurance type Covered democrat ID Authoriza tion(s) No Information Social History [...] feels sob. Pt denies any other complaints LFT Pt has high LFT and high glucose Pt denies any abd pain or jaundice. Pt denies any polyuria, polydipsia. HLP Pt has HLP Pt is not on any diet . platelet Pt has borderlin e high platelet. Pt denies any bruising or bleeding b12 Pt has high B12 Pt does feel fatigue Pt takes b12 supplement. Pt denies any snoring or any trouble with sleeping at night. Pt does drink energy drink ADD Patient has ADD. Patient has inattentive [...] chest pain. Patient denies any appetite loss. 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 Patient denies any [...] pain for a while since off work ADD Patient has ADD. Patient has inattentive type. Patient feels scatterbrained. Patient feel poor focus and difficulty completing tasks. Patient states that Adderall is helping with symptoms. Patient feels more focused. Pt feels more energy. Patient denies any headache, dry mouth, headache, chest pain. Patient denies any appetite loss. anxiety1 Chronic anxiety with depression. No suicidal thought, return to ER with any suicidal thought. Pt doing ok with lexapro. asthma1 Pt has asthma .P t takes symbicort and she rarely needs albuterol. Pt denies any hemoptysis, sob or cough ADD Patient has ADD. Patient has inattentive [...] rosa m with pain management next week sciatica1 Pt c/o persisten t lumbago with right sciatica and right posterior thigh and calf numbness and toe numbness for 4 weeks Pt denies any injury ,Pt tried steroid x 2 rounds without improvement. Pt denies any loss of bladder control. Pt denies any claudication Pt works at [employer] and she is on her feet al day and has been hard for her to work all day ,Pt states that the numbness gets worse after several hours of work Pt also took mobic without improvement ADD Patient has ADD. Patient has inattentive type. Patient feels scatterbrained. Patient feel poor focus and difficulty completing tasks. Patient states that Adderall is helping with symptoms. Patient feels more focused. Pt feels more energy. Patient denies any headache, dry mouth, headache, chest pain. Patient denies any appetite loss. HTN Her BP is ok tod ay sciatica1 Pt c/o acute ons et of [...] numbness and tingling right leg from above HTN Her BP is border line high today Pt denies any chest pain or headache Pt states that she is in pain anxiety1 Pt has chronic a nxiety and depression Pt takes lexapro and doing ok pt denies any suicidal or homicidal thought Pt denies any crying spells asthma1 Pt has asthma. p t takes [...] Patient denies any appetite loss. anxiety1 Pt needs annual physical Pt has [...] working well to help her with symtpoms cough1 Pt c/o productiv e coughing with yellow phlegm, slighlty SOB and sinus symptoms for 2 weeks. Pt has history of asthma and she notices mild wheezing also. Pt is on symbicort and also she wants proair PRN for now Pt denies any fever ADD Pt has ADD Pt ta kes adderall and doing ok. Pt feels more focused. BMI Pt has very high BMI. which is over 50. Pt has been trying to lose weight on her own unsuccessfully. Physical Pt needs annual physical. Pt has asthma. Pt uses symbicort. Pt uses ventolin about 1-2 per month. Pt doing well. No acute soB. Pt has chronic anxiety and depression. Pt takes lexapro and xanax and doing ok. Pt denies any suicidal or homicidal thought. Pt also has ADD. Pt takes adderall and doing ok Pt denies any appetite loss. ADD Pt has ADD. Pt t akes adderall and doing ok. Pt denies any abd pain or any appetite loss anxiety1 Pt has chronic a nxiety and depression. Pt takes lexapro and doing ok. Pt denies any suicidal or homicidal thought. Pt denies any crying spells asthma1 Pt has been usin g symbicort daily. Pt does not need to use proair at all for the past 6 months. Pt denies any coughing or wheezing hemautira Pt denies any UT i symptoms. Pt still has not done repeat UA yet ADD1 Pt has aDD. Pt t akes [...] denies any snoring Pt denies any fatigue. ADD1 Pt has ADD. Pt t akes [...] any crying spells or feeling or hopelessness. asthma1 Pt has asthma. P t james been doing well with symbicort Pt denies any SOB. Pt has not had the need to use proair obeisty1 pt has tried phe ntermine but she could not tolerate without adderall. Pt did feel appetite suppression with phentermine. Pt is obese ADD Pt states that s he cant [...] adult Weight management Related to Ast hma Prescribed Activity and Exercise Education Related to Dietary Surveillance and Counseling Prescribed Diet Educ ation/Lifestyle Education Regarding Diet Related to Dietary Surveillance and Counseling Increase physical activity Relat ed to Encounter [...]
[2025-03-01 13:06] LABS: Hematocrit 47.1 % (35.0-49.0); Hemoglobin 15.2 g/dL (12.0-15.0); Immature Granulocyte Percent A 0.3 % (0.0-0.0); Immature Platelet Fraction Pct 1.9 % (1.0-7.0); Lymphocytes Absolute Auto 2.20 K/mm3 (1.10-4.50); Mean Corpuscular HGB Conc 32.3 g/dL (32-36); Mean Corpuscular Hemoglobin 31.0 pg (27.0-31.0); Mean Corpuscular Volume 95.9 fL (78.0-102.0); Nucleated Red Blood Cells Absolute Auto 0.00 K/mm3 (0.00-0.00); Nucleated Red Blood Cells Perc 0.0 % (0-0.0); Platelet Count Result 516 K/mm3 (150-420); Red Blood Count 4.91 M/mm3 (4.20-5.40); White Blood Count 9.1 K/mm3 (4.8-10.8)
[2025-03-01 13:16] LABS: Hemoglobin A1C 5.6 % (<5.7)
[2025-03-01 13:31] LABS: Alanine Aminotransferase 23 U/L (6-35); Albumin Level 5.2 g/dL (3.5-5.1); Alkaline Phosphatase 106 U/L (38-126); Anion Gap 17 mmol/L (4-12); Aspartate Amino Transferase 28 U/L (14-36); Bilirubin,Total 0.6 mg/dL (0.2-1.3); Blood Urea Nitrogen 20 mg/dL (7-17); Calcium 11.2 mg/dL (8.4-10.2); Carbon Dioxide 22 mmol/L (22-30); Chloride 105 mmol/L (98-107); Cholesterol 267 mg/dL (0-200); Estimated Glomerular Filt Rate > 60; Glucose 117 mg/dL (65-110); HDL Direct 73 mg/dL; Osmolality Calculated 301 mOsm/kg (285-295); Potassium 5.0 mmol/L (3.4-5.0); Sodium 144 mmol/L (137-145); Total Protein 8.3 g/dL (6.3-8.2); Triglycerides 166 mg/dL (<150)
[2025-03-01 14:02] LABS: Thyroid Stimulating Hormone Reflex 2.190 uIU/mL (0.465-4.68)
== END 2025-03-01 12:51 | disposition home or self-care (01) ==
PROVIDERS: PCP Nurse Practitioner Family; Visit Provider Nurse Practitioner Family
DX: Z00.00 Encounter for general adult medical examination without abnormal findings (principal); F32.A Depression, unspecified; F41.9 Anxiety disorder, unspecified
CPT/HCPCS: 36415; 80053; 80061; 82306; 83036; 84443; 85025; 85055

== ENCOUNTER 2025-03-08 15:20 | Outpatient (CLI) | payer OTHER, SELFPAY ==
--- OUTSIDE RECORDS SUMMARY | 2022-07-29 09:58 | XMS_ITS | Continuity of Care Document ---
Author Organization [facility] Address [address] [facility] [place] [address] [place] [address] Phone Care Team Providers Care Digester Capper Name Role Phone Marcello Leahy MD Unavailable Unavailable Allergies, Adverse Reactions, Alerts Substance Reaction Status Criticality No Known Allergies Active No Inform ation Medications Medication Instructions Dosage Effective Dates (start - stop) Status Comments Adderall 30 mg tablet take 1.5 tablet by oral route daily - Active take 30 mg in A m and 15 mg in early afternoon Lexapro 20 mg tablet take 1 tablet (20MG) by oral route every day - Active Symbicort 160 mcg-4.5 mcg/actuation HFA aerosol inhaler inhale 2 puff by inhalation route 2 times every day in the morning and evening 2.00 puff - Active Ventolin HFA 90 mcg/actuation aerosol inhaler inhale 2 puff by inhalation route every 4 - 6 hours as needed as needed - Active PRN for sob Procedures Procedure Date PREV VISIT, EST, AGE 40-64 OFFICE/OUTPATIENT VISIT, EST OFFICE/OUTPATIENT VISIT, EST OFFICE/OUTPATIENT VISIT, EST PREV VISIT, EST, AGE 40-64 OFFICE/OUTPATIENT VISIT, EST OFFICE/OUTPATIENT VISIT, EST PREV VISIT, EST, AGE 40-64 OFFICE/OUTPATIENT VISIT, EST OFFICE/OUTPATIENT VISIT, EST OFFICE/OUTPATIENT VISIT, EST OFFICE/OUTPATIENT VISIT, EST OFFICE/OUTPATIENT VISIT, EST PREV VISIT, EST, AGE 40-64 OFFICE/OUTPATIENT VISIT, EST PREV VISIT, EST, AGE 40-64 OFFICE/OUTPATIENT VISIT, EST OFFICE/OUTPATIENT VISIT, EST PREV VISIT, EST, AGE 40-64 OFFICE/OUTPATIENT VISIT, EST OFFICE/OUTPATIENT VISIT, EST OFFICE/OUTPATIENT VISIT, EST PREV VISIT, EST, AGE 40-64 OFFICE/OUTPATIENT VISIT, EST OFFICE/OUTPATIENT VISIT, EST OFFICE/OUTPATIENT VISIT, EST OFFICE/OUTPATIENT VISIT, EST OFFICE/OUTPATIENT VISIT, EST PREV VISIT, EST, AGE 40-64 OFFICE/OUTPATIENT VISIT, EST OFFICE/OUTPATIENT VISIT, EST PREV VISIT, EST, AGE 40-64 OFFICE/OUTPATIENT VISIT, EST OFFICE/OUTPATIENT VISIT, EST OFFICE/OUTPATIENT VISIT, EST OFFICE/OUTPATIENT VISIT, EST PREV VISIT, EST, AGE 18-39 OFFICE/OUTPATIENT VISIT, EST PREV VISIT, EST, AGE 18-39 OFFICE/OUTPATIENT VISIT, EST FLU VACCINE, 3 YRS & >, IM IMMUNIZATION ADMIN Advance Directives Directive Yes / No Effective Date File Name No Information Encounters Encounter Description Practice Location Reason(s) For Visit Diagnoses Date Provider Providers Copied on Encounter [facility], [address] [place], [place], [address], tel:[phone] [facility] No Information J Luis Armond Armendariz. [address] [place], [place], [address] , . tel:[phone] [facility], [address] [place], [place], [address], [place] tel:[phone] [facility] No Information 2 Armond Claudio [address], [place], [place], [address] , [place]. tel:[phone] PREV VISIT, EST, AGE 40-64 [facility], [address], [address], [place] tel:[phone] [facility] physical (chief complaint) Encounter for general adult medical exam w abnormal findingsLiver diseaseOther thrombocytosisOther specified abnormal findings of blood chemistryGeneralize d anxiety disorderAttention and concentration deficitMild intermittent asthma, uncomplicatedMixed hyperlipidemiaAbnor mal weight loss 2 Armond Claudio [address], [place], [place], [address] , [place]. tel:[phone] OFFICE/OUTPA TIENT VISIT, EST [facility], [address] [place], [address], [place] tel:[phone] [facility] LFT (chief complaint) HLP (chief complaint) platelet (chief complaint) b12 (chief complaint) FatigueOther thrombocytosisMixed hyperlipidemiaHyper glycemiaLiver diseaseOther specified abnormal findings of blood chemistry 2 Armond Claudio [address], [place], [place], [address] , [place]. tel:[phone] OFFICE/OUTPA TIENT VISIT, EST [facility], [address] [place], [address], [place] tel:[phone] [facility] ADD (chief complaint) asthma1 (chief complaint) anxiety1 (chief complaint) Attention and concentration deficitGeneralized anxiety disorderMild intermittent asthma, uncomplicated 2 Armond Caludio [address], [place], [place], [address] , [place]. tel:[phone] PREV VISIT, EST, AGE 40-64 [facility], [address] [place], [address], [place] tel:[phone] [facility] physical (chief complaint) Encounter for general adult medical exam w abnormal findingsAsthmaGener alized anxiety disorderAttention and concentration deficit 0- 1 Armond Armendariz. [address], [place], [place], [address] , [place]. tel:[phone] OFFICE/OUTPA TIENT VISIT, [facility], [address], [place], [place], [address], [place] tel:[phone] [facility] ADD (chief complaint) anxiety1 (chief complaint) Attention and concentration deficitGeneralized anxiety disorder 1 Armond Armendariz. [address], [place], [place], [address] , [place]. tel: [phone] PREV VISIT, [facility], AGE 40-64 [facility], [address], [place], [place], [address], [place] tel:[phone] [facility] physical (chief complaint) Encounter for general adult medical examination without abnormal findings 0 Armond Armendariz. [address], [place], [place], [address] , [place]. tel: [phone] OFFICE/OUTPA TIENT VISIT, [facility], [address], [place], [place], [address], [place] tel:[phone] [facility] ADD (chief complaint) back pain1 (chief complaint) anxiety1 (chief complaint) asthma1 (chief complaint) Attention and concentration deficitLumbago with sciatica, right sideGeneralized anxiety disorderAsthma Jan- 0 Armond Armendariz. [address], [place], [place], [address] , [place]. tel: [phone] OFFICE/OUTPA TIENT VISIT, [facility], [address], [place], [place], [address], [place] tel:[phone] [facility] ADD (chief complaint) back pain1 (chief complaint) Attention and concentration deficitLumbago with sciatica, right side 0 Armond Armendariz. [address], [place], [place], [address] , [place]. tel:[phone] OFFICE/OUTPA TIENT VISIT, EST [facility], [address], [place], [place], [address], [place] tel:[phone] [facility] sciatica1 (chief complaint) ADD (chief complaint) HTN (chief complaint) Essential (primary) hypertensionAttenti on and concentration deficitLumbago with sciatica, right sideParesthesia of skin Feb-2 0-202 0 Armond Armendariz. [address], [place], [place], [address] , [place]. tel:[phone] OFFICE/OUTPA TIENT VISIT, EST [facility], [address], [place], [place], [address], [place] tel:[phone] [facility] sciatica1 (chief complaint) HTN (chief complaint) Essential (primary) hypertensionParesth esia of skin Feb-0 7-202 0 Armond Armendariz. [address], [place], [place], [address] , [place]. tel:[phone] OFFICE/OUTPA TIENT VISIT, EST [facility], [address], [place], [place], [address], [place] tel:[phone] [facility] anxiety1 (chief complaint) asthma1 (chief complaint) ADD (chief complaint) Body mass index (BMI) 50-59.9 , adultAsthmaAcute bronchitisGeneraliz ed Anxiety DisorderAttention and concentration deficit Nov-2 2-201 9 Armond Armendariz. [address], [place], [place], [address] , [place]. tel:[phone] Referring Provider: Marcello Leahy, [address] [facility] [address], [place], [place], [address]. tel:[phone] PREV VISIT, EST, AGE 40-64 [facility], [address], [place], [place], [address], [place] tel:[phone] [facility] anxiety1 (chief complaint) Encounter for general adult medical exam w abnormal findingsAsthmaAtten tion and concentration deficitEssential (primary) hypertensionGeneral ized anxiety disorder November-2 0-201 9 Armond Armendariz. [address], [place], [place], [address] , [place]. tel:[phone] Referring Provider: [address], [place], [place], [address]. tel:[phone] PREV VISIT, EST, AGE 40-64 [facility], [address], [place], [place], [address], [place] tel:[phone] [facility] PHysical (chief complaint) Encounter for general adult medical exam w abnormal findingsAsthmaAtten tion deficitBody mass index (BMI) 45.0-49.9, adultGeneralized anxiety disorder Nov-1 6-201 8 Armond Claudio [address], [place], [place], [address] , [place]. tel:[phone] OFFICE/OUTPA TIENT VISIT, EST [facility], [address], [place], [place], [address], [place] [phone] [facility] asthma1 (chief complaint) anxiety1 (chief complaint) ADD (chief complaint) Body mass index (BMI) 50-59.9 , adultAsthmaAttentio n and concentration deficitGeneralized anxiety disorder November-0 8-201 8 Armond Claudio [address], [place], [place], [address] , [place]. tel:[phone] Referring Provider: [address], [place], [place], [address]. tel:[phone] PREV VISIT, EST, AGE 40-64 [facility], [address], [place], [place], [address], [place] [phone] [facility] PHysical (chief complaint) Encounter for general adult medical exam w abnormal findingsAttention deficitAsthmaGenera lized anxiety disorder Nov-0 2-201 7 Armond Claudio [address], [place], [place], [address] , [place]. tel:[phone] Referring Provider: [address], [place], [place], [address]. tel:[phone] OFFICE/OUTPA TIENT VISIT, EST [facility], [address], [place], [place], [address], [place] tel:[phone] [facility] pelvic pain1 (chief complaint) anxiety1 (chief complaint) asthma1 (chief complaint) ADD (chief complaint) Pelvic painAttention deficitAsthmaGenera lized anxiety disorder 7 Armond Armendariz. [address], [place], [place], [address] , [place]. tel:[phone] Referring Provider: [address], [place], [place], [address]. tel:[phone] OFFICE/OUTPA TIENT VISIT, EST [facility], [address], [place], [place], [address], [place] tel:[phone] [facility] cough1 (chief complaint) ADD (chief complaint) BMI (chief complaint) Acute bronchitis, unspecifiedAttentio n deficitBody mass index (BMI) 50-59.9 , adult Jul- 7 Armond Armendariz. [address], [place], [place], [address] , [place]. tel:[phone] PREV VISIT, EST, AGE 40-64 [facility], [address], [place], [place], [address], [place] tel:[phone] [facility] Physical (chief complaint) Encounter for general adult medical exam w abnormal findingsAttention deficitGeneralized anxiety disorderAsthma 6 Armond Armendariz. [address], [place], [place], [address] , [place]. tel:[phone] Referring Provider: [address], [place], [place], [address]. tel:[phone] OFFICE/OUTPA TIENT VISIT, EST [facility], [address], [place], [place], [address], [place] tel:[phone] [facility] ADD (chief complaint) anxiety1 (chief complaint) asthma1 (chief complaint) hemautira (chief complaint) Attention deficitGeneralized anxiety disorderOther asthmaHematuria 6 Armond Armendariz. [address], [place], [place], [address] , [place]. tel:[phone] Referring Provider: [address]bo [address], [place], [place], [address]. tel:[phone] OFFICE/OUTPA TIENT VISIT, [facility], [address], [place], [place], [address], [place] tel:[phone] [facility] ADD1 (chief complaint) sore throat1 (chief complaint) asthma (chief complaint) obesity1 (chief complaint) Acute upper respiratory infection, unspecifiedBody mass index (BMI) 50-59.9 , adultOther asthmaAttention deficit 6 Armond Armendariz. [address], [place], [place], [address] , [place]. tel:[phone] Referring Provider: [address], [place], [place], [address]. tel:[phone] OFFICE/OUTPA TIENT VISIT, [facility], [address], [place], [place], [address], [place] tel:[phone] [facility] ADD1 (chief complaint) hematuria1 (chief complaint) depression 1 (chief complaint) asthma1 (chief complaint) obeisty1 (chief complaint) HematuriaBody mass index (BMI) 50-59.9 , adultGeneralized anxiety disorderAttention and concentration deficit 5 Armond Armendariz. [address], [place], [place], [address] , [place]. tel:[phone] Referring Provider: [address], [place], [place], [address]. tel:[phone] OFFICE/OUTPA TIENT VISIT, [facility], [address], [place], [place], [address], [place] tel:[phone] [facility] ADD (chief complaint) obeisty (chief complaint) hematuria (chief complaint) Dietary surveillance and counselingAttention deficit disorder of childhood without mention of hyperactivityBMI 50.0 to 59.9Hematuria 5 Armond Armendariz. [address], [place], [place], [address] , [place]. tel:[phone] Referring Provider: [address], [place], [place], [address]. tel:[phone] PREV VISIT, EST, AGE 40-64 [facility], [address], [place], [place], [address], [place] tel:[phone] [facility] Physical (chief complaint) Dietary surveillance and counselingRoutine medical examAsthma, unspecifiedHematuri aInsulin resistance 5 Armond Armendariz. [address], [place], [place], [address] , [place]. tel:[phone] Referring Provider: Jimbo [address], [place], [place], [address]. tel:[phone] OFFICE/OUTPA TIENT VISIT, EST [facility], [address], [place], [place], [address], [place] tel:[phone] [facility] SOB (chief complaint) Asthma (chief complaint) Dietary surveillance and counselingAsthmaBro nchitis, AcuteAttention deficit disorder of childhood without mention of hyperactivity 5 Armond Armendariz. [address], [place], [place], [address] , [place]. tel:[phone] Referring Provider: Jim[address], [place], [place], [address]. tel:[phone] PREV VISIT, EST, AGE 40-64 [facility], [address], [place], [place], [address], [place] tel:[phone] [facility] Physical (chief complaint) Routine Medical ExamDietary surveillance and counselingAsthmaBro nchitis, AcuteAttention deficit disorder of childhood without mention of hyperactivityRoutin e Medical Exam 5 Armond Armendariz. [address], [place], [place], [address] , [place]. tel:[phone] Referring Provider: Jimbo [address], [place], [place], [address]. tel:[phone] OFFICE/OUTPA TIENT VISIT, [facility], [address], [place], [place], [address], [place] tel:[phone] [facility] cough (chief complaint) ADD (chief complaint) asthma (chief complaint) Dietary surveillance and counselingBronchiti s, AcuteAsthmaAllergic rhinitis, cause unspecifiedAttentio n deficit disorder of childhood without mention of hyperactivity 4 Armond Armendariz. [address], [place], [place], [address] , [place]. tel:[phone] Referring Provider: [address], [place], [place], [address]. tel:[phone] OFFICE/OUTPA TIENT VISIT, [facility], [address], [place], [place], [address], [place] tel:[phone] [facility] cough (chief complaint) Anxiety (chief complaint) ADD (chief complaint) Dietary surveillance and counselingBronchiti s, AcuteAsthmaAttentio n deficit disorder of childhood without mention of hyperactivityDepres dhruv 4 Armond Armendariz. [address], [place], [place], [address] , [place]. tel:[phone] Referring Provider: Jimbo [address], [place], [place], [address]. tel:[phone] OFFICE/OUTPA TIENT VISIT, [facility], [address], [place], [place], [address], [place] tel:[phone] [facility] ADD (chief complaint) anxiety (chief complaint) Dietary surveillance and counselingAttention deficit disorder of childhood without mention of hyperactivityDepres dhruv 4 Armond Armendariz. [address], [place], [place], [address] , [place]. tel:[phone] Referring Provider: Jimbo [address], [place], [place], [address]. tel:[phone] PREV VISIT, EST, AGE 18-39 [facility], [address], [place], [place], [address], [place] tel:[phone] [facility] Physical (chief complaint) Dietary surveillance and counselingRoutine Medical ExamBronchitis, AcuteRoutine Medical Exam Dec-0 3 Armond Armendariz. [address], [place], [place], [address] , [place]. tel:[phone] PREV VISIT, EST, AGE 18-39 [facility], [address], [place], [place], [address], [place] tel:[phone] [facility] Physical (chief complaint) Dietary surveillance and counselingRoutine Medical ExamRoutine Medical Exam Salo-0 3 Armond Armendariz. [address], [place], [place], [address] , [place]. tel:[phone] Referring Provider: [address]bo [address], [place], [place], [address]. tel:[phone] OFFICE/OUTPA TIENT VISIT, EST [facility], [address], [place], [place], [address], [place] tel:[phone] [facility] ADD (chief complaint) Asthma (chief complaint) depression (chief complaint) Dietary surveillance and counselingAsthmaAtt ention deficit disorder of childhood without mention of hyperactivityMajor depressive affective disorder, single episode, mild degreeInfluenza Vaccine Jun-0 2 Armond Armendariz. [address], [place], [place], [address] , [place]. tel:[phone] Referring Provider: [address]bo [address], [place], [place], [address]. tel:[phone] Family History Family Member Type Diagnosis Age At Onset Father Problem (finding) Diabetes mellitus Sister Problem (finding) Alive and well Mother Problem (finding) CHF Immunizations Vaccine Date Status Comments Flu (split) (3 yrs or older) administered Source: New Immunization Record Payers Payer name Insurance type Covered alliance party ID Authoriza tion(s) No Information Social History Type Description Quantity Date Captured Comments Sex Female Smoking Status No Information Chief Complaint And Reason For Visit No Information Plan Of Treatment Date Type Action Status Goal Tobacco cessation counseling completed Goal Special diet education compl eted Goal Tobacco cessation counseling completed Goal Special diet education compl eted Goal Prescribed dietary intake co mpleted Goal Tobacco cessation counseling completed Goal Special diet education compl eted Referral Ordered: Pain Medicine (related to Lumbago with sciatica, right side) ordered Referral Ordered: MRI LUMBAR SPINE W/O DYE ordered Referral Ordered: Referrals: Pain Medicine. Evaluate and treat ordered Referral Ordered: LUMBAR XRAY AP AND LAT ONLY ordered Referral Ordered: US, PELVIC (NONOBSTETRIC); ordered Referral Ordered: MAMMOGRAM, SCREENING ordered Referral Ordered: Referral: Pulmonary Diseases. ordered Referral Ordered: CHEST X-RAY PA/LAT TWO-VIEWS ordered History Of Present Illness Encounter Date Complaint History Of Prese nt Illness physical Pt needs annual physical Pt has history of HLP, high LFT, high platelet and high glucose. Pt has been diet and exercising and she lost some weight on her own Pt denies any appetite loss, nausea, vomiting, early satiety, change of bowel, blood in stool, etc. Pt has ADD Pt doing ok with adderall. Pt needs adderall refilled. Pt has anxiety and depression Pt takes lexapro and doing ok Pt denies any suicidal or homicidal thought Pt denies any crying spells. Pt also has asthma and she is doing well with symbicort. Pt rarely feels sob. Pt denies any other complaints b12 Pt has high B12 Pt does feel fatigue Pt takes b12 supplement. Pt denies any snoring or any trouble with sleeping at night. Pt does drink energy drink platelet Pt has borderlin e high platelet. Pt denies any bruising or bleeding HLP Pt has HLP Pt is not on any diet . LFT Pt has high LFT and high glucose Pt denies any abd pain or jaundice. Pt denies any polyuria, polydipsia. ADD Patient has ADD. Patient has inattentive type. Patient feels scatterbrained. Patient feel poor focus and difficulty completing tasks. Patient states that Adderall is helping with symptoms. Patient feels more focused. Pt feels more energy. Patient denies any headache, dry mouth, headache, chest pain. Patient denies any appetite loss. asthma Pt has asthma Pt uses symbicort and she rarely uses albuterol. Pt denies any acute sob or wheezing anxiety Pt has chronic a nxiety and depression. Pt take lexapro and doing ok Pt denies any suicidal or homicidal thought. pt denies any crying spells physical Pt needs annual physical. Pt has asthma Pt uses symbicort daily and she rarely uses albuterol. Pt denies any hemoptysis ,worsening sob or cough. Pt no longer smoking. Pt has anxiety and depression .Pt takes lexapro and doing ok. pt denies any suicidal or homicidal thought .Pt denies any crying spells. Patient has ADD. Patient has inattentive type. Patient feels scatterbrained. Patient feel poor focus and difficulty completing tasks. Patient states that Adderall is helping with symptoms. Patient feels more focused. Pt feels more energy. Patient denies any headache, dry mouth, headache, chest pain. Patient denies any appetite loss. Pt denies any other complaints ADD Patient has ADD. Patient has inattentive type. Patient feels scatterbrained. Patient feel poor focus and difficulty completing tasks. Patient states that Adderall is helping with symptoms. Patient feels more focused. Pt feels more energy. Patient denies any headache, dry mouth, headache, chest pain. Patient denies any appetite loss. anxiety1 Patient has unload associate nerissa anxiety and depression. Patient denies any suicidal homicidal thoughts. Patient denies any crying spells. Patient takes lexapro and doing okay. Patient noticed more motivation. Patient denies any hopelessness. physical Pt needs annual physical Pt has chronic anxiety and depression ,Pt takes lexapro and doing ok. Pt denies any suicidal or homicidal thought. Pt denies any crying spells. Pt has asthma. Pt takes symbicort and albuterol PRN Pt on average use albuterol 1-2 per week, pt denies any hemoptysis or acute sob. Pt also has ADD, Pt takes adderall and doing ok ,pt feels more focused back pain1 Pt states that s he never saw the pain management and she never did the MRi Pt states that her back pain actually doing ok Pt denies any loss of bladder control. Pt has not had any back pain for a while since off work asthma1 Pt has asthma .P t takes symbicort and she rarely needs albuterol. Pt denies any hemoptysis, sob or cough anxiety1 Chronic anxiety with depression. No suicidal thought, return to ER with any suicidal thought. Pt doing ok with lexapro. ADD Patient has ADD. Patient has inattentive type. Patient feels scatterbrained. Patient feel poor focus and difficulty completing tasks. Patient states that Adderall is helping with symptoms. Patient feels more focused. Pt feels more energy. Patient denies any headache, dry mouth, headache, chest pain. Patient denies any appetite loss. ADD Patient has ADD. Patient has inattentive type. Patient feels scatterbrained. Patient feel poor focus and difficulty completing tasks. Patient states that Adderall is helping with symptoms. Patient feels more focused. Pt feels more energy. Patient denies any headache, dry mouth, headache, chest pain. Patient denies any appetite loss. back pain1 Pt c/o persisten t lumbago with right sciatica and right posterior thigh and calf numbness and toe numbness for 8 weeks Pt denies any injury ,Pt tried steroid x 2 rounds without improvement. Pt denies any loss of bladder control. Pt denies any claudication. Pt will do MRI and x ray next week and she also has rosa m with pain management next week HTN Her BP is ok tod ay ADD Patient has ADD. Patient has inattentive type. Patient feels scatterbrained. Patient feel poor focus and difficulty completing tasks. Patient states that Adderall is helping with symptoms. Patient feels more focused. Pt feels more energy. Patient denies any headache, dry mouth, headache, chest pain. Patient denies any appetite loss. sciatica1 Pt c/o persisten t lumbago with right sciatica and right posterior thigh and calf numbness and toe numbness for 4 weeks Pt denies any injury ,Pt tried steroid x 2 rounds without improvement. Pt denies any loss of bladder control. Pt denies any claudication Pt works at [employer] and she is on her feet al day and has been hard for her to work all day ,Pt states that the numbness gets worse after several hours of work Pt also took mobic without improvement HTN Her BP is border line high today Pt denies any chest pain or headache Pt states that she is in pain sciatica1 Pt c/o acute ons et of right sciatica from right buttock to right foot for one week. pt denies any injury or back pain Pt denies any loss of bladder control. pt has similar symptoms in the past but never this bad. Pt denies any loss of bladder control. Pt took some muscle relaxant at home but did not help. Pt feels numbness and tingling right leg from above asthma1 Pt has asthma. p t takes symbicort daily and she uses ventolin once every two weeks Pt cristela any worsening sob Pt c/o acute productive green phlegm and purulent sinus drainage for past 1.5 weeks Pt denies any chest pain, fever, chill, sore throat, ear pain, Pt denies any hemoptysis, Pt has a lot of sick contact at work. Pt denies any calf pain ADD Patient has ADD. Patient has inattentive type. Patient feels scatterbrained. Patient feel poor focus and difficulty completing tasks. Patient states that Adderall is helping with symptoms. Patient feels more focused. Pt feels more energy. Patient denies any headache, dry mouth, headache, chest pain. Patient denies any appetite loss. anxiety1 Pt has chronic a nxiety and depression Pt takes lexapro and doing ok pt denies any suicidal or homicidal thought Pt denies any crying spells anxiety1 Pt needs annual physical Pt has chronic anxiety and depression Pt takes lexapro and doing ok. Pt denies any suicidal or homicidal thought. Pt has asthma. pt uses symbicort daily pt rarely uses albuterol Pt denies any hemoptysis, sob or cough Pt also has ADD, inattentive type Pt doing ok with adderall Pt feels more focused. Pt denies any side effects PHysical Pt needs annual physical. Pt has ADD, inattentive type. Pt doing ok with adderall. Pt feels more focused. Pt has asthma. Pt uses symbicort. Pt does not need to use albuterol. Pt denies any acute sob. Pt has albuterol just in case. Pt also has anxiety and depression. Pt takes lexapro and doing ok. pt denies any suicidal or homicidal thought Pt denies any crying spells. Pt overall feels well. Pt denies any other complaints asthma1 Pt uses symbicor t. Pt never needs to use albuterol. Pt denies any sob anxiety1 Pt has chronic a nxiety and depression Pt takes lexapro and doing ok Pt denies any suicidal or homicidal thought. Pt denies any crying spells ADD Pt has ADD, inat tentive type. Pt doing ok with adderall. pt feels more focused. PHysical Pt needs annual physical. Pt has asthma and she takes symbicort daily and she denies any needs to use venotlin at all. Pt has anxiety and depression and she takes leaxapro and doing ok. Pt denies any suicidal or homicidal thought Pt also has ADD, inattentive type. Pt doing ok with adderall. Pt has been working on diet and exercise and she lost 34 pounds since last year. Pt cristela any other compalints pelvic pain1 Pt has low pelvi c cramp x last two months several days after her menstraul period. pt denies any vaginal bleeding or vaginal discharge. Pt denies any UTI symptoms. Pt feels mildly nauseated. Pt denies any diarrhea anxiety1 Pt has chronic a nxiety and depression. Pt takes lexapro and doing ok. Pt denies any suicidal or homicidal thought.Pt denies any crying spells asthma1 Pt uses symbicor t everyday. Pt does not need to use rescue inhaler. Pt has albuterol at home just in case. ADD Pt has ADD. Pt h as diffiuclty with focus and concentration and completing tasks. Pt states that adderall is working well to help her with symtpoms BMI Pt has very high BMI. which is over 50. Pt has been trying to lose weight on her own unsuccessfully. ADD Pt has ADD Pt ta tonya adderall and doing ok. Pt feels more focused. cough1 Pt c/o productiv e coughing with yellow phlegm, slighlty SOB and sinus symptoms for 2 weeks. Pt has history of asthma and she notices mild wheezing also. Pt is on symbicort and also she wants proair PRN for now Pt denies any fever Physical Pt needs annual physical. Pt has asthma. Pt uses symbicort. Pt uses ventolin about 1-2 per month. Pt doing well. No acute soB. Pt has chronic anxiety and depression. Pt takes lexapro and xanax and doing ok. Pt denies any suicidal or homicidal thought. Pt also has ADD. Pt takes adderall and doing ok Pt denies any appetite loss. hemautira Pt denies any UT i symptoms. Pt still has not done repeat UA yet asthma1 Pt has been usin g symbicort daily. Pt does not need to use proair at all for the past 6 months. Pt denies any coughing or wheezing anxiety1 Pt has chronic a nxiety and depression. Pt takes lexapro and doing ok. Pt denies any suicidal or homicidal thought. Pt denies any crying spells ADD Pt has ADD. Pt t akes adderall and doing ok. Pt denies any abd pain or any appetite loss ADD1 Pt has aDD. Pt t akes addeall and doing ok. Pt denies any abd pain or any appetite loss. Pt feels more energy and better focused sore throat1 Pt c/o sore thro at for 3 days. Pt notices white spots around throat area. pt c/o sinus congestion and ear pain as well. Pt denies any fever asthma The initial visi t date was 07/26/2015. Additional information: Pt has asthma. Pt has been taking symbicort daily. Pt is doing well. Pt rarely uses albuterol anymore. Pt does not want PFT now. obesity1 Pt is morbidly o bese. Pt has difficulty losing weight. Pt denies any snoring Pt denies any fatigue. asthma1 Pt has asthma. P t james been doing well with symbicort Pt denies any SOB. Pt has not had the need to use proair obeisty1 pt has tried phe ntermine but she could not tolerate without adderall. Pt did feel appetite suppression with phentermine. Pt is obese ADD1 Pt has ADD. Pt t akes adderall 30 and 15 and doing much better. Pt feels more focused with more concentration. Pt denies any chest pain hematuria1 Pt has hemautria but repeat lab did not do microscopic. Pt denies any UTI symptoms depression1 Pt has chronic a nxiety and depression. Pt atkes lexapro and doing ok. Pt denies any suicidal thought or any crying spells or feeling or hopelessness. ADD Pt states that s he cant function at work due to lack of adderall and she restarted adderall again. Pt states that current dose does not work anymore. obeisty Her BMI is over 50 pt liked the phentermine but canot do it without adderall so she has to stop phentermine. hematuria Pt denies any UT I symptoms Physical Pt needs annual physical. Pt has asthma. Pt has been using symbicort and doing well. Pt rarely uses proair. Pt has not done PFT. Pt has mildly elevated A1c. Pt has low vitami D, Pt has hematuria Pt was on her period during lab work. Pt has difficulty losing weight. Pt has aDD Pt states that the 10 mg in the afternoon does work so much. Pt denies any other complaints Instructions Date Instruction Additional Infor mation Special diet education Related t o Body mass index (BMI) 50.0-59.9, adult Increase physical activity Relat ed to Asthma Weight management Related to Ast hma Special diet education Related t o Body mass index (BMI) 50-59.9, adult Prescribed dietary intake Relate d to Body mass index (BMI) 45.0-49.9, adult Increase physical activity Relat ed to Encounter for general adult medical exam w abnormal findings Weight management Related to Enc ounter for general adult medical exam w abnormal findings Special diet education Related t o Body mass index (BMI) 50-59.9 , adult Weight management Related to Ast hma Increase physical activity Relat ed to Encounter for general adult medical exam w abnormal findings Weight management Related to Enc ounter for general adult medical exam w abnormal findings Prescribed Activity and Exercise Education Related to Dietary Surveillance and Counseling Prescribed Diet Educ ation/Lifestyle Education Regarding Diet Related to Dietary Surveillance and Counseling Prescribed Diet Educ ation/Lifestyle Education Regarding Diet Related to Dietary Surveillance and Counseling Prescribed Activity and Exercise Education Related to Dietary Surveillance and Counseling Prescribed Activity and Exercise Education Related to Dietary Surveillance and Counseling Prescribed Diet Educ ation/Lifestyle Education Regarding Diet Related to Dietary Surveillance and Counseling Prescribed Diet Educ ation/Lifestyle Education Regarding Diet Related to Dietary Surveillance and Counseling Prescribed Activity and Exercise Education Related to Dietary Surveillance and Counseling Prescribed Diet Educ ation/Lifestyle Education Regarding Diet Related to Dietary Surveillance and Counseling Prescribed Activity and Exercise Education Related to Dietary Surveillance and Counseling Prescribed Activity and Exercise Education Related to Dietary Surveillance and Counseling Prescribed Diet Educ ation/Lifestyle Education Regarding Diet Related to Dietary Surveillance and Counseling Prescribed Activity and Exercise Education Related to Dietary Surveillance and Counseling Prescribed Diet Educ ation/Lifestyle Education Regarding Diet Related to Dietary Surveillance and Counseling Prescribed Diet Educ ation/Lifestyle Education Regarding Diet Related to Dietary Surveillance and Counseling Prescribed Activity and Exercise Education Related to Dietary Surveillance and Counseling Prescribed Activity and Exercise Education Related to Dietary Surveillance and Counseling Prescribed Diet Educ ation/Lifestyle Education Regarding Diet Related to Dietary Surveillance and Counseling Physical activity counseling Rel ated to Dietary surveillance counseling Decrease caloric intake Related to Dietary surveillance counseling Physical activity counseling Rel ated to Dietary surveillance counseling Decrease caloric intake Related to Dietary surveillance counseling Dietary counseling Related to Di etary surveillance counseling Decrease caloric intake Related to Dietary surveillance counseling Dietary counseling Related to Di etary surveillance counseling Decrease caloric intake Related to Dietary surveillance counseling Decrease caloric intake Related to Dietary surveillance counseling Dietary counseling Related to Di etary surveillance counseling Dietary counseling Related to Di etary surveillance counseling Decrease caloric intake Related to Dietary surveillance counseling Decrease caloric intake Related to Dietary surveillance counseling Dietary counseling Related to Di etary surveillance counseling Dietary counseling Related to Di etary surveillance counseling Decrease caloric intake Related to Dietary surveillance counseling Assessments Type Assessment Date No Information
--- NOTE | ~2025-03-08 | XR_ITS ---
XR lumbar spine 2-3V 03/08/2025 15:45 Indication: Low back pain Procedure: 3 views lumbar spine Comparison: 11/14/2022 Findings: There are cholecystectomy clips. There is disc narrowing at all lumbar levels most advanced at L4-5. There is facet hypertrophy at most lumbar levels with grade 1 degenerative spondylolisthesis at L4-5 these findings are not significantly changed compared with prior study. There is dextrocurvature of the lumbar spine. There are cholecystectomy clips. No acute fracture or traumatic malalignment. There is moderate lower thoracic spondylosis. Impression: 1: Severe lumbar spondylosis without significant change compared with prior examination line for technique. Reviewed, dictated and finalized at location O. Impression: 1: Severe lumbar spondylosis without significant change compared with prior exa mination line for technique.
--- NOTE | ~2025-03-08 | XR_ITS ---
XR thoracic spine 3V 03/08/2025 15:46 Indication: Low back pain Procedure: 3 views thoracic spine Comparison: No prior studies for comparison. Findings: There is dextroscoliosis of the thoracic spine. No paraspinal soft tissue abnormality. No acute fracture, subluxation or dislocation. There is mild chronic appearing wedge deformity of T11. Surrounding osseous structures are unremarkable. Impression: 1: Moderate thoracic spondylosis with levoscoliosis. Reviewed, dictated and finalized at location O. Impression: 1: Moderate thoracic spondylosis with levoscoliosis.
--- NOTE | ~2025-03-08 | XR_ITS ---
EXAM/ PROCEDURE: XR hip BI wo pelvis - 03/08/2025 15:30 CDT HISTORY: 49 years old Female with M54.50 - Low back pain, unspecified COMPARISON: None available TECHNIQUE: Four view(s) FINDINGS/ IMPRESSION: Mild discontinuity in the femoral neck may represent a minimally displaced fracture. Correlate with physical examination and CT scan can be performed for more definitive evaluation. Joint space narrowing, subchondral sclerosis, subchondral cyst formation and osteophyte formation, compatible with osteoarthritis. Severe osteoarthritis on the right side and mild osteoarthritis of the left side. Reviewed, dictated and finalized at location N.
== END 2025-03-08 15:21 | disposition home or self-care (01) ==
LOC: CHSIMG 15:21
PROVIDERS: PCP Nurse Practitioner Family; Visit Provider Nurse Practitioner Family
DX: M54.50 Low back pain, unspecified (principal); M25.551 Pain in right hip; G89.29 Other chronic pain; M43.04 Spondylolysis, thoracic region; M43.06 Spondylolysis, lumbar region
CPT/HCPCS: 72072; 72100; 73521

== ENCOUNTER 2025-03-15 06:24 | Outpatient (CLI) | payer OTHER, SELFPAY ==
[2025-03-16 14:08] LABS: Albumin 3.9 g/dL (2.9-4.4); Alpha-1-Globulin 0.3 g/dL (0.0-0.4); Alpha-2-Globulin 1.1 g/dL (0.4-1.0); Gamma Globulin 0.9 g/dL (0.4-1.8)
== END 2025-03-15 06:25 | disposition home or self-care (01) ==
LOC: CHSLAB 06:25
PROVIDERS: PCP Nurse Practitioner Family; Visit Provider Nurse Practitioner Family
DX: E83.52 Hypercalcemia (principal)
CPT/HCPCS: 84155; 84165

== ENCOUNTER 2025-03-17 15:07 | Outpatient (CLI) | payer OTHER, SELFPAY ==
--- OUTSIDE RECORDS SUMMARY | 2022-07-29 09:58 | XMS_ITS | Continuity of Care Document ---
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 Name Role Phone Marcello Leahy MD Unavailable [...] by oral route every day - Active Ventolin HFA 90 mcg/actuation aerosol inhaler inhale 2 puff by inhalation route every 4 - 6 hours as needed as needed - Active PRN for sob Symbicort 160 mcg-4.5 mcg/actuation HFA aerosol inhaler inhale 2 puff by inhalation route 2 times every day in the morning and evening 2.00 puff - Active Procedures Procedure Date PREV VISIT, EST, AGE [...] Diagnoses Date Provider Providers Copied on Encounter [facility], [address] [place], [place], [address], tel:[phone] [facility] No Information J Luis Armond Armendariz. [address] [place], [place], [address] , . tel:[phone] [facility], [address] [place], [place], [address], [place] tel:[phone] [facility] No Information 2 Armond Claudio [address], [place], [place], [address] , [place]. tel:[phone] PREV VISIT, EST, AGE 40-64 [facility], [address], [address], [place] tel:[phone] [facility] physical (chief complaint) Encounter for general adult medical exam w abnormal findingsLiver diseaseOther thrombocytosisOther specified abnormal findings of blood chemistryGeneralize d anxiety disorderAttention and concentration deficitMild intermittent asthma, uncomplicatedMixed hyperlipidemiaAbnor mal weight loss 2 Armond Claudio [address], [place], [place], [address] , [place]. tel:[phone] OFFICE/OUTPA TIENT VISIT, EST [facility], [address], [address], [place] tel:[phone] [facility] LFT (chief complaint) HLP (chief complaint) platelet (chief complaint) b12 (chief complaint) FatigueOther thrombocytosisMixed hyperlipidemiaHyper glycemiaLiver diseaseOther specified abnormal findings of blood chemistry 2 Armond Claudio [address], [place], [place], [address] , [place]. tel:[phone] OFFICE/OUTPA TIENT VISIT, EST [facility], [address], [address], [place] tel:[phone] [facility] ADD (chief complaint) asthma1 (chief complaint) anxiety1 (chief complaint) Attention and concentration deficitGeneralized anxiety disorderMild intermittent asthma, uncomplicated 2 Armond Claudio [address], [place], [place], [address] , [place]. tel:[phone] PREV VISIT, EST, AGE 40-64 [facility], [address], [address], [place] tel:[phone] [facility] physical (chief complaint) Encounter for general adult medical exam w abnormal findingsAsthmaGener alized anxiety disorderAttention and concentration deficit 0- 1 Armond Armendariz. [address], [place], [place], [address] , [place]. tel:[phone] OFFICE/OUTPA TIENT VISIT, [facility], [address], [place], [place], [address], [place] tel:[phone] [facility] ADD (chief complaint) anxiety1 (chief complaint) Attention and concentration deficitGeneralized anxiety disorder 1 Armond Armenadriz. [address], [place], [place], [address] , [place]. tel: [phone] PREV VISIT, [facility], AGE 40-64 [facility], [address], [place], [place], [address], [place] tel:[phone] [facility] physical (chief complaint) Encounter for general adult medical examination without abnormal findings 0 Armond Armendariz. [address], [place], [place], [address] , [place]. tel: [phone] OFFICE/OUTPA TIENT VISIT, [facility], [address], [place], [place], [address], [place] tel:[phone] [facility] ADD (chief complaint) back pain1 (chief complaint) anxiety1 (chief complaint) asthma1 (chief complaint) Attention and concentration deficitLumbago with sciatica, right sideGeneralized anxiety disorderAsthma Jan- 0 Armond Armendariz. [address], [place], [place], [address] , [place]. tel: [phone] OFFICE/OUTPA TIENT VISIT, [facility], [address], [place], [place], [address], [place] tel:[phone] [facility] ADD (chief complaint) back pain1 (chief complaint) Attention and concentration deficitLumbago with sciatica, right side 0 Armond Armendariz. [address], [place], [place], [address] , [place]. tel:[phone] OFFICE/OUTPA TIENT VISIT, EST [facility], [address], [place], [place], [address], [place] tel:[phone] [facility] sciatica1 (chief complaint) ADD (chief complaint) HTN (chief complaint) Essential (primary) hypertensionAttenti on and concentration deficitLumbago with sciatica, right sideParesthesia of skin Feb-2 0-202 0 Armond Armendariz. [address], [place], [place], [address] , [place]. tel:[phone] OFFICE/OUTPA TIENT VISIT, EST [facility], [address], [place], [place], [address], [place] tel:[phone] [facility] sciatica1 (chief complaint) HTN (chief complaint) Essential (primary) hypertensionParesth esia of skin Feb-0 7-202 0 rAmond Armendariz. [address], [place], [place], [address] , [place]. tel:[phone] OFFICE/OUTPA TIENT VISIT, EST [facility], [address], [place], [place], [address], [place] tel:[phone] [facility] anxiety1 (chief complaint) asthma1 (chief complaint) ADD (chief complaint) Body mass index (BMI) 50-59.9 , adultAsthmaAcute bronchitisGeneraliz ed Anxiety DisorderAttention and concentration deficit Nov-2 2-201 9 Armond Armendariz. [address], [place], [place], [address] , [place]. tel:[phone] Referring Provider: Marcello Leahy, [address] [facility] [address], [place], [place], [address]. tel:[phone] PREV VISIT, EST, AGE 40-64 [facility], [address], [place], [place], [address], [place] tel:[phone] [facility] anxiety1 (chief complaint) Encounter for general adult medical exam w abnormal findingsAsthmaAtten tion and concentration deficitEssential (primary) hypertensionGeneral ized anxiety disorder November-2 0-201 9 Armond Armendariz. [address], [place], [place], [address] , [place]. tel:[phone] Referring Provider: [address], [place], [place], [address]. tel:[phone] PREV VISIT, EST, AGE 40-64 [facility], [address], [place], [place], [address], [place] tel:[phone] [facility] PHysical (chief complaint) Encounter for general adult medical exam w abnormal findingsAsthmaAtten tion deficitBody mass index (BMI) 45.0-49.9, adultGeneralized anxiety disorder Nov-1 6-201 8 Armond Claudio [address], [place], [place], [address] , [place]. tel:[phone] OFFICE/OUTPA TIENT VISIT, EST [facility], [address], [place], [place], [address], [place] [phone] [facility] asthma1 (chief complaint) anxiety1 (chief complaint) ADD (chief complaint) Body mass index (BMI) 50-59.9 , adultAsthmaAttentio n and concentration deficitGeneralized anxiety disorder November-0 8-201 8 Armond Claudio [address], [place], [place], [address] , [place]. tel:[phone] Referring Provider: [address], [place], [place], [address]. tel:[phone] PREV VISIT, EST, AGE 40-64 [facility], [address], [place], [place], [address], [place] [phone] [facility] PHysical (chief complaint) Encounter for general adult medical exam w abnormal findingsAttention deficitAsthmaGenera lized anxiety disorder Nov-0 2-201 7 Armond Claudio [address], [place], [place], [address] , [place]. tel: [phone] Referring Provider: [address], [place], [place], [address]. tel:[phone] OFFICE/OUTPA TIENT VISIT, EST [facility], [address], [place], [place], [address], [place] tel:[phone] [facility] pelvic pain1 (chief complaint) anxiety1 (chief complaint) asthma1 (chief complaint) ADD (chief complaint) Pelvic painAttention deficitAsthmaGenera lized anxiety disorder 7 Armond Armendariz. [address], [place], [place], [address] , [place]. tel:[phone] Referring Provider: [address], [place], [place], [address]. tel:[phone] OFFICE/OUTPA TIENT VISIT, EST [facility], [address], [place], [place], [address], [place] tel:[phone] [facility] cough1 (chief complaint) ADD (chief complaint) BMI (chief complaint) Acute bronchitis, unspecifiedAttentio n deficitBody mass index (BMI) 50-59.9 , adult Jul- 7 Armond Armendariz. [address], [place], [place], [address] , [place]. tel:[phone] PREV VISIT, EST, AGE 40-64 [facility], [address], [place], [place], [address], [place] tel:[phone] [facility] Physical (chief complaint) Encounter for general adult medical exam w abnormal findingsAttention deficitGeneralized anxiety disorderAsthma 6 Armond Armendariz. [address], [place], [place], [address] , [place]. tel:[phone] Referring Provider: [address], [place], [place], [address]. tel:[phone] OFFICE/OUTPA TIENT VISIT, EST [facility], [address], [place], [place], [address], [place] tel:[phone] [facility] ADD (chief complaint) anxiety1 (chief complaint) asthma1 (chief complaint) hemautira (chief complaint) Attention deficitGeneralized anxiety disorderOther asthmaHematuria 6 Armond Armendariz. [address], [place], [place], [address] , [place]. tel:[phone] Referring Provider: [address], [place], [place], [address]. tel:[phone] OFFICE/OUTPA TIENT VISIT, [facility], [address], [place], [place], [address], [place] tel:[phone] [facility] ADD1 (chief complaint) sore throat1 (chief complaint) asthma (chief complaint) obesity1 (chief complaint) Acute upper respiratory infection, unspecifiedBody mass index (BMI) 50-59.9 , adultOther asthmaAttention deficit 6 Armond Armendariz. [address], [place], [place], [address] , [place]. tel:[phone] Referring Provider: [address], [place], [place], [address]. tel:[phone] OFFICE/OUTPA TIENT VISIT, [facility], [address], [place], [place], [address], [place] tel:[phone] [facility] ADD1 (chief complaint) hematuria1 (chief complaint) depression 1 (chief complaint) asthma1 (chief complaint) obeisty1 (chief complaint) HematuriaBody mass index (BMI) 50-59.9 , adultGeneralized anxiety disorderAttention and concentration deficit 5 Armond Armendariz. [address], [place], [place], [address] , [place]. tel:[phone] Referring Provider: [address], [place], [place], [address]. tel:[phone] OFFICE/OUTPA TIENT VISIT, [facility], [address], [place], [place], [address], [place] tel:[phone] [facility] ADD (chief complaint) obeisty (chief complaint) hematuria (chief complaint) Dietary surveillance and counselingAttention deficit disorder of childhood without mention of hyperactivityBMI 50.0 to 59.9Hematuria 5 Armond Armendariz. [address], [place], [place], [address] , [place]. tel:[phone] Referring Provider: [address], [place], [place], [address]. tel:[phone] PREV VISIT, EST, AGE 40-64 [facility], [address], [place], [place], [address], [place] tel:[phone] [facility] Physical (chief complaint) Dietary surveillance and counselingRoutine medical examAsthma, unspecifiedHematuri aInsulin resistance 5 Armond Armendariz. [address], [place], [place], [address] , [place]. tel:[phone] Referring Provider: [address], [place], [place], [address]. tel:[phone] OFFICE/OUTPA TIENT VISIT, EST [facility], [address], [place], [place], [address], [place] tel:[phone] [facility] SOB (chief complaint) Asthma (chief complaint) Dietary surveillance and counselingAsthmaBro nchitis, AcuteAttention deficit disorder of childhood without mention of hyperactivity 5 Armond Armendariz. [address], [place], [place], [address] , [place]. tel:[phone] Referring Provider: [address], [place], [place], [address]. tel:[phone] PREV VISIT, EST, AGE 40-64 [facility], [address], [place], [place], [address], [place] tel:[phone] [facility] Physical (chief complaint) Routine Medical ExamDietary surveillance and counselingAsthmaBro nchitis, AcuteAttention deficit disorder of childhood without mention of hyperactivityRoutin e Medical Exam 5 Armond Armendariz. [address], [place], [place], [address] , [place]. tel:[phone] Referring Provider: [address], [place], [place], [address]. tel:[phone] OFFICE/OUTPA TIENT VISIT, [facility], [address], [place], [place], [address], [place] tel:[phone] [facility] cough (chief complaint) ADD (chief complaint) asthma (chief complaint) Dietary surveillance and counselingBronchiti s, AcuteAsthmaAllergic rhinitis, cause unspecifiedAttentio n deficit disorder of childhood without mention of hyperactivity 4 Armond Armendariz. [address], [place], [place], [address] , [place]. tel:[phone] Referring Provider: [address], [place], [place], [address]. tel:[phone] OFFICE/OUTPA TIENT VISIT, [facility], [address], [place], [place], [address], [place] tel:[phone] [facility] cough (chief complaint) Anxiety (chief complaint) ADD (chief complaint) Dietary surveillance and counselingBronchiti s, AcuteAsthmaAttentio n deficit disorder of childhood without mention of hyperactivityDepres dhruv 4 Armond Armendariz. [address], [place], [place], [address] , [place]. tel:[phone] Referring Provider: [address], [place], [place], [address]. tel:[phone] OFFICE/OUTPA TIENT VISIT, [facility], [address], [place], [place], [address], [place] tel:[phone] [facility] ADD (chief complaint) anxiety (chief complaint) Dietary surveillance and counselingAttention deficit disorder of childhood without mention of hyperactivityDepres dhruv 4 Armond Armendariz. [address], [place], [place], [address] , [place]. tel:[phone] Referring Provider: [address], [place], [place], [address]. tel:[phone] PREV VISIT, EST, AGE 18-39 [facility], [address], [place], [place], [address], [place] tel:[phone] [facility] Physical (chief complaint) Dietary surveillance and counselingRoutine Medical ExamBronchitis, AcuteRoutine Medical Exam Dec-0 3 Armond Armendariz. [address], [place], [place], [address] , [place]. tel:[phone] PREV VISIT, EST, AGE 18-39 [facility], [address], [place], [place], [address], [place] tel:[phone] [facility] Physical (chief complaint) Dietary surveillance and counselingRoutine Medical ExamRoutine Medical Exam Salo-0 3 Armond Armendariz. [address], [place], [place], [address] , [place]. tel:[phone] Referring Provider: [address], [place], [place], [address]. tel:[phone] OFFICE/OUTPA TIENT VISIT, EST [facility], [address], [place], [place], [address], [place] tel:[phone] [facility] ADD (chief complaint) Asthma (chief complaint) depression (chief complaint) Dietary surveillance and counselingAsthmaAtt ention deficit disorder of childhood without mention of hyperactivityMajor depressive affective disorder, single episode, mild degreeInfluenza Vaccine Jun-0 2 Armond Armendariz. [address], [place], [place], [address] , [place]. tel:[phone] Referring Provider: [address], [place], [place], [address]. tel:[phone] Family History Family Member Type Diagnosis Age [...] denies any appetite loss. 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 Patient denies any [...] Pt denies any claudication Pt works at [employer] and she is on her feet al [...] adult medical exam w abnormal findings Prescribed Diet Educ ation/Lifestyle Education Regarding Diet [...]
--- NOTE | ~2025-03-17 | CT_ITS ---
EXAMINATION: CT pelvis wo con DATE: 03/17/2025 15:28 INDICATION: Right hip pain TECHNIQUE: Computed tomography (CT) of the pelvis was performed without intravenous contrast. CT reconstructions of the pelvis were obtained in the axial, coronal, and sagittal planes. The dose-length product was 1071.92 mGy-cm. COMPARISON: Radiographs dated 03/08/2025 FINDINGS: No fracture or osteonecrosis. Advanced osteoarthritis at the right hip with extensive [id number] apposition at the cephalad aspect of the joint space and prominent subarticular cystlike changes on both sides of the joint space. There are large marginal osteophytes along the femoral head and acetabulum. Additional severe osteoarthritis at the bilateral sacroiliac joints and multiple lower lumbar facet joints. Moderate disc height loss at L4-L5. Mild left hip osteoarthritis. No hip joint effusions. Numerous diverticula along the sigmoid colon without adjacent inflammatory stranding to suggest diverticulitis. Bladder is normal. The uterus is not identified and has likely been surgically resected. No free intraperitoneal gas or fluid. No pathologically enlarged pelvic or inguinal lymphadenopathy. IMPRESSION: 1. Advanced right hip osteoarthritis. No acute osseous abnormality. Reviewed, dictated and finalized at location A.
== END 2025-03-17 15:08 | disposition home or self-care (01) ==
PROVIDERS: PCP Nurse Practitioner Family; Visit Provider Nurse Practitioner Family
DX: M25.551 Pain in right hip (principal); G89.29 Other chronic pain; M54.50 Low back pain, unspecified; S72.90XA Unspecified fracture of unspecified femur, initial encounter for closed fracture; M16.11 Unilateral primary osteoarthritis, right hip
CPT/HCPCS: 72192